=== PATIENT | male | born 1955 | race African-American/Black ===

== ENCOUNTER → 2017-02-17 | Day surgery (SDC) | payer MEDICAID ==
[2017-02-17 08:33] LABS: INR 1.1; PARTIAL THROMBOPLASTIN TIME 27.1 sec (24.0-34.0); PROTHROMBIN TIME 11.9 sec
== END | disposition home or self-care (01) ==
LOC: RADANGIO 07:53
PROVIDERS: ATTEND Internal Medicine Nephrology
DX: I12.0 Hypertensive chronic kidney disease with stage 5 chronic kidney disease or end stage renal disease (principal); N18.6 End stage renal disease; E11.9 Type 2 diabetes mellitus without complications; E78.5 Hyperlipidemia, unspecified; D64.9 Anemia, unspecified
CPT/HCPCS: 36415; 36589; 85610; 85730

== ENCOUNTER 2020-03-25 07:48 | Inpatient (IN) | payer MEDICAID ==
[~2020-03-25] VITALS: Ht 175.3 cm; Wt 93.0 kg
[2020-03-25 09:07] LABS: BASOPHILS % 0.4 % (0.0-2.0); EOSINOPHILS % 2.3 % (0.0-5.0); HEMATOCRIT. 34.5 % (42.0-52.0); HEMOGLOBIN. 11.4 g/dL (14.0-18.0); LYMPHOCYTES % 12.5 % (20.0-50.0); MEAN CORPUSCULAR VOLUME 87.5 fL (80.0-94.0); MEAN PLATELET VOLUME 7.6 fl (7.4-10.4); MONOCYTES % 7.6 % (2.0-8.0); NEUTROPHILS % 77.2 % (40.0-76.0); PLATELET 235 x1000/uL (130-400); RED BLOOD CELL COUNT 3.94 mill/uL (4.7-6.1); RED CELL DISTRIBUTION WIDTH 16.4 % (11.6-14.6)
[2020-03-25 09:14] LABS: CHLORIDE 94 mEq/L (98-107); INR 0.9; PROTHROMBIN TIME 10.3 sec (9.6-11.0)
[2020-03-25] MEDS ORDERED: CLONIDINE 0.2MG TABLET PO SCH (15:15)
[2020-03-25] MEDS ORDERED: AZITHROMYCIN 500 MG TABLET PO SCH (15:30)
[2020-03-25] MEDS: ENOXAPARIN 30MG/0.3ML SYR SUBCUT SCH (15:52)
[2020-03-25 16:19] LABS: CLARITY URINE CLEAR (CLEAR); COLOR URINE YELLOW (YELLOW); KETONES URINE NEGATIVE (NEGATIVE); LEUKOCYTE ESTERASE URINE NEGATIVE (NEGATIVE); NITRITE URINE NEGATIVE (NEGATIVE); OCCULT BLOOD URINE 1+ (NEGATIVE); PH URINE >=9.0 (4.5-8.0); PROTEIN URINE 3+ (NEGATIVE); SPECIFIC GRAVITY URINE 1.011 (1.005-1.030); UROBILINOGEN URINE 0.2 E.U./dL (0.2-1.0)
[2020-03-25] MEDS ORDERED: LORAZEPAM 2MG/ML CPJ IV PRN (21:00)
[2020-03-25] MEDS ORDERED: DOCUSATE SODIUM 100MG CAPSULE PO PRN (21:00)
[2020-03-25] MEDS ORDERED: ACETAMINOPHEN 325MG TABLET PO PRN (21:00)
[2020-03-25] MEDS ORDERED: MAGNESIUM/ALUMINUM HYDROXIDE/SIMETHICONE 30ML UDC PO PRN (21:00)
[2020-03-25] MEDS ORDERED: MORPHINE SULFATE 2 MG/ML CPJ (NOT FOR IM USE) IV PRN (21:00)
[2020-03-25] MEDS ORDERED: DEXTROSE 50% WATER 50ML SYRINGE IV PRN (21:00)
[2020-03-25] MEDS ORDERED: ONDANSETRON HCL 4MG/2ML INJ IV PRN (21:00)
[2020-03-25] MEDS ORDERED: DIPHENHYDRAMINE 50MG/ML VIAL IV PRN (21:00)
[2020-03-25] MEDS ORDERED: IPRATROPIUM/ALBUTEROL 0.5-3(2.5)MG/3ML NEB NEB PRN (21:00)
[2020-03-25] MEDS ORDERED: HYDROCODONE/ACETAMINOPHEN 10/325MG TABLET PO PRN (21:00)
[2020-03-25] MEDS ORDERED: GUAIFENESIN 200MG/10ML SUGAR FREE UDC PO PRN (21:00)
[2020-03-25] MEDS: CLONIDINE 0.1MG TABLET PO PRN (22:08)
[2020-03-25] MEDS ORDERED: HYDRALAZINE 20MG/ML VIAL IV PRN (22:15)
[2020-03-26] MEDS: CLONIDINE 0.1MG TABLET PO PRN (03:48)
[2020-03-26 04:00] VITALS: BP 192/86
[2020-03-26] MEDS ORDERED: HYDRALAZINE 20MG/ML VIAL IV PRN (04:00)
[2020-03-26] MEDS: SODIUM CHLORIDE 0.9% INJ 3ML FLUSH IVF SCH ×3 (07:06→21:31)
[2020-03-26] MEDS: BLOOD SUGAR DIAGNOSTIC STRIP TEST SCH ×4 (07:12→21:30)
[2020-03-26] MEDS: INSULIN LISPRO 100 UNITS/ML SUBCUT SCH ×4 (08:10→21:00)
[2020-03-26] MEDS: ENOXAPARIN 30MG/0.3ML SYR SUBCUT SCH (09:21)
[2020-03-26] MEDS: AZITHROMYCIN 250 MG TABLET PO SCH (09:22)
[2020-03-26 10:56] LABS: BASOPHILS % 0.7 % (0.0-2.0); EOSINOPHILS % 2.3 % (0.0-5.0); HEMATOCRIT. 31.9 % (42.0-52.0); HEMOGLOBIN. 10.3 g/dL (14.0-18.0); LYMPHOCYTES % 8.3 % (20.0-50.0); MEAN CORPUSCULAR HEMOGLOBIN 28.9 pg (28.0-32.0); MEAN CORPUSCULAR VOLUME 89.7 fL (80.0-94.0); MEAN PLATELET VOLUME 8.3 fl (7.4-10.4); MONOCYTES % 10.7 % (2.0-8.0); PLATELET 217 x1000/uL (130-400); RED BLOOD CELL COUNT 3.56 mill/uL (4.7-6.1); RED CELL DISTRIBUTION WIDTH 16.3 % (11.6-14.6)
[2020-03-26 10:59] LABS: CHLORIDE 97 mEq/L (98-107)
[2020-03-26 12:00] VITALS: BP 174/78
[2020-03-26] MEDS: NIFEDIPINE XL 60MG TAB PO SCH (13:30)
[2020-03-26] MEDS: HYDRALAZINE HCL 50MG TABLET PO SCH ×2 (14:00→21:30)
[2020-03-26] MEDS ORDERED: SODIUM POLYSTYRENE SULFONATE 15 G/60 ML BOT PO SCH (14:00)
[2020-03-26 16:00] VITALS: BP 164/68
[2020-03-26] MEDS: CLONIDINE 0.2MG TABLET PO SCH (18:15)
[2020-03-26 20:09] VITALS: BP 148/77
[2020-03-27] VITALS: BP 126/80
[2020-03-27 04:00] VITALS: BP 168/88
[2020-03-27] MEDS: SODIUM CHLORIDE 0.9% INJ 3ML FLUSH IVF SCH ×3 (06:28→21:20)
[2020-03-27] MEDS: INSULIN LISPRO 100 UNITS/ML SUBCUT SCH ×4 (06:28→21:19)
[2020-03-27] MEDS: BLOOD SUGAR DIAGNOSTIC STRIP TEST SCH ×4 (06:28→21:00)
[2020-03-27] MEDS: HYDRALAZINE HCL 50MG TABLET PO SCH ×3 (06:28→21:04)
[2020-03-27 08:00] VITALS: BP 188/85
[2020-03-27] MEDS: ENOXAPARIN 40MG/0.4ML SYR SUBCUT SCH (09:09)
[2020-03-27] MEDS: AZITHROMYCIN 250 MG TABLET PO SCH (09:12)
[2020-03-27] MEDS: CLONIDINE 0.2MG TABLET PO SCH ×2 (09:12→17:53)
[2020-03-27] MEDS: NIFEDIPINE XL 60MG TAB PO SCH (09:13)
[2020-03-27 12:00] VITALS: BP 184/104
[2020-03-27 16:00] VITALS: BP 114/83
[2020-03-27 18:06] LABS: COVID-19 PCR RNA DETECTED
[2020-03-27 20:00] VITALS: BP 173/68
[2020-03-28] VITALS: BP 113/66
[2020-03-28 04:00] VITALS: BP 131/62
[2020-03-28] MEDS: HYDRALAZINE HCL 50MG TABLET PO SCH ×3 (05:08→22:00)
[2020-03-28] MEDS: SODIUM CHLORIDE 0.9% INJ 3ML FLUSH IVF SCH ×3 (06:00→22:00)
[2020-03-28] MEDS: BLOOD SUGAR DIAGNOSTIC STRIP TEST SCH ×4 (07:02→21:00)
[2020-03-28] MEDS: INSULIN LISPRO 100 UNITS/ML SUBCUT SCH ×4 (07:33→21:00)
[2020-03-28 08:00] VITALS: BP 168/73
[2020-03-28] MEDS: AZITHROMYCIN 250 MG TABLET PO SCH (09:14)
[2020-03-28] MEDS: CLONIDINE 0.2MG TABLET PO SCH ×2 (09:14→17:11)
[2020-03-28] MEDS: NIFEDIPINE XL 60MG TAB PO SCH (09:14)
[2020-03-28] MEDS: ENOXAPARIN 40MG/0.4ML SYR SUBCUT SCH (09:15)
[2020-03-28 12:00] VITALS: BP 159/83
[2020-03-28 16:00] VITALS: BP 160/82
[2020-03-28 17:25] LABS: BASOPHILS % 0.5 % (0.0-2.0); EOSINOPHILS % 0.2 % (0.0-5.0); HEMATOCRIT. 35.5 % (42.0-52.0); HEMOGLOBIN. 11.4 g/dL (14.0-18.0); LYMPHOCYTES % 7.4 % (20.0-50.0); MEAN CORPUSCULAR HEMOGLOBIN 29.2 pg (28.0-32.0); MEAN CORPUSCULAR VOLUME 90.5 fL (80.0-94.0); MEAN PLATELET VOLUME 8.3 fl (7.4-10.4); MONOCYTES % 10.7 % (2.0-8.0); NEUTROPHILS % 81.2 % (40.0-76.0); PLATELET 213 x1000/uL (130-400); RED BLOOD CELL COUNT 3.92 mill/uL (4.7-6.1); RED CELL DISTRIBUTION WIDTH 17.1 % (11.6-14.6)
[2020-03-28 20:00] VITALS: BP 142/69
[2020-03-29 00:38] VITALS: BP 142/69
[2020-03-29 04:00] VITALS: BP 136/68
[2020-03-29] MEDS: HYDRALAZINE HCL 50MG TABLET PO SCH ×3 (06:00→21:00)
[2020-03-29] MEDS: SODIUM CHLORIDE 0.9% INJ 3ML FLUSH IVF SCH ×3 (06:00→21:00)
[2020-03-29] MEDS: BLOOD SUGAR DIAGNOSTIC STRIP TEST SCH ×4 (07:40→20:59)
[2020-03-29 08:00] VITALS: BP 148/78
[2020-03-29] MEDS: AZITHROMYCIN 250 MG TABLET PO SCH (09:00)
[2020-03-29] MEDS: CLONIDINE 0.2MG TABLET PO SCH ×2 (09:03→17:47)
[2020-03-29] MEDS: ENOXAPARIN 40MG/0.4ML SYR SUBCUT SCH (09:03)
[2020-03-29] MEDS: NIFEDIPINE XL 60MG TAB PO SCH (09:03)
[2020-03-29] MEDS: INSULIN LISPRO 100 UNITS/ML SUBCUT SCH ×4 (09:04→20:58)
[2020-03-29 12:00] VITALS: BP 147/72
[2020-03-29 16:00] VITALS: BP 155/60
[2020-03-29 20:00] VITALS: BP 148/74
[2020-03-30] VITALS: BP 136/72
[2020-03-30 04:00] VITALS: BP 166/73
[2020-03-30] MEDS: SODIUM CHLORIDE 0.9% INJ 3ML FLUSH IVF SCH ×3 (06:27→21:50)
[2020-03-30] MEDS: HYDRALAZINE HCL 50MG TABLET PO SCH ×3 (06:28→21:49)
[2020-03-30] MEDS: BLOOD SUGAR DIAGNOSTIC STRIP TEST SCH ×4 (06:28→21:50)
[2020-03-30 07:01] LABS: BASOPHILS % 0.4 % (0.0-2.0); EOSINOPHILS % 0.2 % (0.0-5.0); HEMATOCRIT. 34.5 % (42.0-52.0); HEMOGLOBIN. 11.5 g/dL (14.0-18.0); LYMPHOCYTES % 7.9 % (20.0-50.0); MEAN CORPUSCULAR HEMOGLOBIN 29.2 pg (28.0-32.0); MEAN CORPUSCULAR VOLUME 87.4 fL (80.0-94.0); MEAN PLATELET VOLUME 8.3 fl (7.4-10.4); MONOCYTES % 10.4 % (2.0-8.0); NEUTROPHILS % 81.1 % (40.0-76.0); PLATELET 226 x1000/uL (130-400); RED BLOOD CELL COUNT 3.95 mill/uL (4.7-6.1); RED CELL DISTRIBUTION WIDTH 16.4 % (11.6-14.6)
[2020-03-30 08:00] VITALS: BP 132/72
[2020-03-30] MEDS: INSULIN LISPRO 100 UNITS/ML SUBCUT SCH ×4 (08:10→21:50)
[2020-03-30] MEDS: AZITHROMYCIN 250 MG TABLET PO SCH (08:37)
[2020-03-30] MEDS: CLONIDINE 0.2MG TABLET PO SCH ×2 (08:45→17:00)
[2020-03-30] MEDS: NIFEDIPINE XL 60MG TAB PO SCH (08:46)
[2020-03-30] MEDS: ENOXAPARIN 40MG/0.4ML SYR SUBCUT SCH (08:47)
[2020-03-30 12:00] VITALS: BP 140/73
[2020-03-30 16:00] VITALS: BP 159/79
[2020-03-30 20:00] VITALS: BP 174/80
[2020-03-30] MEDS ORDERED: SODIUM POLYSTYRENE SULFONATE 15 G/60 ML BOT PO NR (20:00)
[2020-03-31] VITALS (8 sets, daily range): BP systolic 122–180; BP diastolic 58–83
[2020-03-31] MEDS: HYDRALAZINE HCL 50MG TABLET PO SCH ×3 (06:00→21:03)
[2020-03-31] MEDS: SODIUM CHLORIDE 0.9% INJ 3ML FLUSH IVF SCH ×3 (06:20→21:04)
[2020-03-31] MEDS: BLOOD SUGAR DIAGNOSTIC STRIP TEST SCH ×4 (07:46→21:04)
[2020-03-31] MEDS: INSULIN LISPRO 100 UNITS/ML SUBCUT SCH ×4 (07:48→21:04)
[2020-03-31] MEDS: ENOXAPARIN 40MG/0.4ML SYR SUBCUT SCH (08:50)
[2020-03-31] MEDS: NIFEDIPINE XL 60MG TAB PO SCH (08:58)
[2020-03-31] MEDS: CLONIDINE 0.2MG TABLET PO SCH ×2 (08:58→16:45)
[2020-03-31] MEDS: LOSARTAN POTASSIUM 50 MG TABLET PO SCH (13:43)
[2020-03-31] MEDS: CARVEDILOL 3.125 MG TABLET PO SCH (21:03)
[2020-04-01 00:20] VITALS: BP 113/62
[2020-04-01 04:00] VITALS: BP 120/60
[2020-04-01] MEDS: HYDRALAZINE HCL 50MG TABLET PO SCH ×3 (05:54→21:13)
[2020-04-01] MEDS: SODIUM CHLORIDE 0.9% INJ 3ML FLUSH IVF SCH ×3 (05:54→22:01)
[2020-04-01] MEDS: BLOOD SUGAR DIAGNOSTIC STRIP TEST SCH ×4 (05:55→21:37)
[2020-04-01 08:00] VITALS: BP 123/69
[2020-04-01] MEDS: INSULIN LISPRO 100 UNITS/ML SUBCUT SCH ×4 (08:10→22:13)
[2020-04-01] MEDS: CARVEDILOL 3.125 MG TABLET PO SCH ×2 (09:35→21:13)
[2020-04-01] MEDS: CLONIDINE 0.2MG TABLET PO SCH ×2 (09:35→16:58)
[2020-04-01] MEDS: NIFEDIPINE XL 60MG TAB PO SCH (09:35)
[2020-04-01] MEDS: LOSARTAN POTASSIUM 50 MG TABLET PO SCH (09:35)
[2020-04-01] MEDS: ENOXAPARIN 40MG/0.4ML SYR SUBCUT SCH (09:35)
[2020-04-01 12:00] VITALS: BP 127/62
[2020-04-01 16:00] VITALS: BP 124/67
[2020-04-01 20:00] VITALS: BP 129/78
[2020-04-02] VITALS: BP 138/64
[2020-04-02 04:00] VITALS: BP 136/79
[2020-04-02] MEDS: HYDRALAZINE HCL 50MG TABLET PO SCH ×3 (06:08→21:46)
[2020-04-02] MEDS: SODIUM CHLORIDE 0.9% INJ 3ML FLUSH IVF SCH ×3 (06:08→22:00)
[2020-04-02] MEDS: BLOOD SUGAR DIAGNOSTIC STRIP TEST SCH ×4 (06:58→21:57)
[2020-04-02] MEDS: INSULIN LISPRO 100 UNITS/ML SUBCUT SCH ×4 (07:30→21:00)
[2020-04-02 08:00] VITALS: BP 126/63
[2020-04-02] MEDS: CLONIDINE 0.2MG TABLET PO SCH ×2 (08:54→17:00)
[2020-04-02] MEDS: CARVEDILOL 3.125 MG TABLET PO SCH ×2 (08:54→21:46)
[2020-04-02] MEDS: NIFEDIPINE XL 60MG TAB PO SCH (08:55)
[2020-04-02] MEDS: ENOXAPARIN 40MG/0.4ML SYR SUBCUT SCH (08:55)
[2020-04-02] MEDS: LOSARTAN POTASSIUM 50 MG TABLET PO SCH (08:55)
[2020-04-02 10:33] LABS: HEMATOCRIT. 33.9 % (42.0-52.0); HEMOGLOBIN. 11.3 g/dL (14.0-18.0); MEAN CORPUSCULAR HEMOGLOBIN 29.2 pg (28.0-32.0); MEAN CORPUSCULAR VOLUME 87.8 fL (80.0-94.0); MEAN PLATELET VOLUME 8.8 fl (7.4-10.4); PLATELET 220 x1000/uL (130-400); RED BLOOD CELL COUNT 3.86 mill/uL (4.7-6.1); RED CELL DISTRIBUTION WIDTH 16.2 % (11.6-14.6)
[2020-04-02 12:00] VITALS: BP 147/74
[2020-04-02 13:05] LABS: PLATELET ESTIMATE NORMAL
[2020-04-02 16:00] VITALS: BP 146/68
[2020-04-02 20:00] VITALS: BP 166/83
[2020-04-03] VITALS: BP 138/78
[2020-04-03 04:00] VITALS: BP 132/67
[2020-04-03] MEDS: HYDRALAZINE HCL 50MG TABLET PO SCH ×3 (05:25→22:00)
[2020-04-03] MEDS: SODIUM CHLORIDE 0.9% INJ 3ML FLUSH IVF SCH ×3 (06:00→22:00)
[2020-04-03] MEDS: BLOOD SUGAR DIAGNOSTIC STRIP TEST SCH ×4 (07:06→21:59)
[2020-04-03] MEDS: INSULIN LISPRO 100 UNITS/ML SUBCUT SCH ×4 (07:06→21:00)
[2020-04-03 08:00] VITALS: BP 147/88
[2020-04-03] MEDS: NIFEDIPINE XL 60MG TAB PO SCH (09:46)
[2020-04-03] MEDS: ENOXAPARIN 40MG/0.4ML SYR SUBCUT SCH (09:46)
[2020-04-03] MEDS: CARVEDILOL 3.125 MG TABLET PO SCH ×2 (09:47→21:00)
[2020-04-03] MEDS: CLONIDINE 0.2MG TABLET PO SCH ×2 (09:47→18:50)
[2020-04-03] MEDS: LOSARTAN POTASSIUM 50 MG TABLET PO SCH (09:47)
[2020-04-03 12:00] VITALS: BP 151/75
[2020-04-03 16:00] VITALS: BP 149/88
[2020-04-03 20:00] VITALS: BP 106/60
[2020-04-04] VITALS: BP 124/72
[2020-04-04 04:00] VITALS: BP 112/59
[2020-04-04 04:58] LABS: BASOPHILS % 0.3 % (0.0-2.0); EOSINOPHILS % 1.5 % (0.0-5.0); HEMATOCRIT. 31.6 % (42.0-52.0); HEMOGLOBIN. 10.6 g/dL (14.0-18.0); MEAN CORPUSCULAR HEMOGLOBIN 29.5 pg (28.0-32.0); MEAN CORPUSCULAR VOLUME 88.4 fL (80.0-94.0); MEAN PLATELET VOLUME 8.7 fl (7.4-10.4); MONOCYTES % 9.3 % (2.0-8.0); NEUTROPHILS % 76.9 % (40.0-76.0); PLATELET 217 x1000/uL (130-400); RED BLOOD CELL COUNT 3.58 mill/uL (4.7-6.1); RED CELL DISTRIBUTION WIDTH 15.8 % (11.6-14.6)
[2020-04-04] MEDS: SODIUM CHLORIDE 0.9% INJ 3ML FLUSH IVF SCH ×3 (06:14→19:58)
[2020-04-04] MEDS: HYDRALAZINE HCL 50MG TABLET PO SCH ×3 (06:14→19:58)
[2020-04-04] MEDS: BLOOD SUGAR DIAGNOSTIC STRIP TEST SCH ×4 (06:18→19:58)
[2020-04-04 08:00] VITALS: BP 152/117
[2020-04-04] MEDS: LOSARTAN POTASSIUM 50 MG TABLET PO SCH (08:02)
[2020-04-04] MEDS: NIFEDIPINE XL 60MG TAB PO SCH (08:03)
[2020-04-04] MEDS: CARVEDILOL 3.125 MG TABLET PO SCH ×2 (08:03→19:58)
[2020-04-04] MEDS: ENOXAPARIN 40MG/0.4ML SYR SUBCUT SCH (08:07)
[2020-04-04] MEDS: CLONIDINE 0.2MG TABLET PO SCH ×2 (08:07→17:06)
[2020-04-04] MEDS: INSULIN LISPRO 100 UNITS/ML SUBCUT SCH ×4 (08:10→20:06)
[2020-04-04 12:00] VITALS: BP 152/117
[2020-04-04 16:00] VITALS: BP 152/117
[2020-04-04 20:00] VITALS: BP 112/65
[2020-04-05 00:05] VITALS: BP 102/56
[2020-04-05 04:00] VITALS: BP 122/58
[2020-04-05 05:22] LABS: BASOPHILS % 0.5 % (0.0-2.0); EOSINOPHILS % 1.6 % (0.0-5.0); HEMATOCRIT. 30.5 % (42.0-52.0); HEMOGLOBIN. 10.3 g/dL (14.0-18.0); LYMPHOCYTES % 14.2 % (20.0-50.0); MEAN CORPUSCULAR HEMOGLOBIN 29.8 pg (28.0-32.0); MEAN CORPUSCULAR VOLUME 88.3 fL (80.0-94.0); MEAN PLATELET VOLUME 8.9 fl (7.4-10.4); MONOCYTES % 9.4 % (2.0-8.0); NEUTROPHILS % 74.3 % (40.0-76.0); PLATELET 242 x1000/uL (130-400); RED BLOOD CELL COUNT 3.46 mill/uL (4.7-6.1); RED CELL DISTRIBUTION WIDTH 15.7 % (11.6-14.6)
[2020-04-05] MEDS: HYDRALAZINE HCL 50MG TABLET PO SCH ×3 (05:56→21:48)
[2020-04-05] MEDS: BLOOD SUGAR DIAGNOSTIC STRIP TEST SCH ×4 (05:56→22:06)
[2020-04-05] MEDS: SODIUM CHLORIDE 0.9% INJ 3ML FLUSH IVF SCH ×3 (05:56→22:06)
[2020-04-05] MEDS: INSULIN LISPRO 100 UNITS/ML SUBCUT SCH ×4 (07:43→22:05)
[2020-04-05 08:00] VITALS: BP_SYST 130; BP_SYST 144; BP_DIAS 65; BP_DIAS 89
[2020-04-05] MEDS: NIFEDIPINE XL 60MG TAB PO SCH (09:00)
[2020-04-05] MEDS: LOSARTAN POTASSIUM 50 MG TABLET PO SCH (09:00)
[2020-04-05] MEDS: CLONIDINE 0.2MG TABLET PO SCH ×2 (09:00→17:00)
[2020-04-05] MEDS: CARVEDILOL 3.125 MG TABLET PO SCH ×2 (09:00→21:49)
[2020-04-05] MEDS: ENOXAPARIN 40MG/0.4ML SYR SUBCUT SCH (09:51)
[2020-04-05 16:00] VITALS: BP 133/66
[2020-04-05 20:00] VITALS: BP 140/80
[2020-04-06] VITALS: BP 134/71
[2020-04-06] MEDS: SODIUM CHLORIDE 0.9% INJ 3ML FLUSH IVF SCH ×3 (05:43→21:06)
[2020-04-06] MEDS: HYDRALAZINE HCL 50MG TABLET PO SCH ×3 (05:43→21:07)
[2020-04-06] MEDS: BLOOD SUGAR DIAGNOSTIC STRIP TEST SCH ×4 (07:40→21:07)
[2020-04-06] MEDS: INSULIN LISPRO 100 UNITS/ML SUBCUT SCH ×4 (07:48→21:19)
[2020-04-06 08:00] VITALS: BP 106/66
[2020-04-06] MEDS: ENOXAPARIN 40MG/0.4ML SYR SUBCUT SCH (08:53)
[2020-04-06] MEDS: NIFEDIPINE XL 60MG TAB PO SCH (08:53)
[2020-04-06] MEDS: LOSARTAN POTASSIUM 50 MG TABLET PO SCH (08:54)
[2020-04-06] MEDS: CLONIDINE 0.2MG TABLET PO SCH ×2 (08:54→17:00)
[2020-04-06] MEDS: CARVEDILOL 3.125 MG TABLET PO SCH ×2 (08:54→21:07)
[2020-04-06 12:00] VITALS: BP_SYST 106; BP_SYST 157; BP_DIAS 66; BP_DIAS 86
[2020-04-06 13:00] VITALS: BP 157/86
[2020-04-06 16:00] VITALS: BP 141/88
[2020-04-06 20:00] VITALS: BP 142/72
[2020-04-07] VITALS: BP 135/75
[2020-04-07 04:00] VITALS: BP 137/67
[2020-04-07] MEDS: HYDRALAZINE HCL 50MG TABLET PO SCH ×3 (06:13→22:22)
[2020-04-07] MEDS: SODIUM CHLORIDE 0.9% INJ 3ML FLUSH IVF SCH ×3 (06:13→22:23)
[2020-04-07] MEDS: INSULIN LISPRO 100 UNITS/ML SUBCUT SCH ×4 (07:35→22:24)
[2020-04-07] MEDS: BLOOD SUGAR DIAGNOSTIC STRIP TEST SCH ×4 (07:35→21:00)
[2020-04-07 08:00] VITALS: BP 149/56
[2020-04-07] MEDS: CLONIDINE 0.2MG TABLET PO SCH ×2 (09:04→16:57)
[2020-04-07] MEDS: ENOXAPARIN 40MG/0.4ML SYR SUBCUT SCH (09:04)
[2020-04-07] MEDS: NIFEDIPINE XL 60MG TAB PO SCH (09:04)
[2020-04-07] MEDS: CARVEDILOL 3.125 MG TABLET PO SCH ×2 (09:04→22:22)
[2020-04-07] MEDS: LOSARTAN POTASSIUM 50 MG TABLET PO SCH (09:05)
[2020-04-07 12:00] VITALS: BP 118/74
[2020-04-07 16:00] VITALS: BP 105/44
[2020-04-07 20:00] VITALS: BP 122/67
[2020-04-08] VITALS: BP 109/64
[2020-04-08 04:00] VITALS: BP 136/66
[2020-04-08] MEDS: SODIUM CHLORIDE 0.9% INJ 3ML FLUSH IVF SCH ×3 (06:17→22:41)
[2020-04-08] MEDS: BLOOD SUGAR DIAGNOSTIC STRIP TEST SCH ×4 (06:17→21:54)
[2020-04-08] MEDS: HYDRALAZINE HCL 50MG TABLET PO SCH ×4 (06:17→21:55)
[2020-04-08 08:00] VITALS: BP 96/63
[2020-04-08] MEDS: INSULIN LISPRO 100 UNITS/ML SUBCUT SCH ×4 (08:10→21:00)
[2020-04-08] MEDS: CARVEDILOL 3.125 MG TABLET PO SCH ×2 (09:00→21:55)
[2020-04-08] MEDS: LOSARTAN POTASSIUM 50 MG TABLET PO SCH (09:00)
[2020-04-08] MEDS: CLONIDINE 0.2MG TABLET PO SCH ×2 (09:00→17:00)
[2020-04-08] MEDS: NIFEDIPINE XL 60MG TAB PO SCH (09:00)
[2020-04-08] MEDS: ENOXAPARIN 40MG/0.4ML SYR SUBCUT SCH (09:56)
[2020-04-08 12:00] VITALS: BP 163/84
[2020-04-08 12:17] LABS: BASOPHILS % 0.9 % (0.0-2.0); HEMATOCRIT. 31.4 % (42.0-52.0); HEMOGLOBIN. 10.3 g/dL (14.0-18.0); LYMPHOCYTES % 7.9 % (20.0-50.0); MEAN CORPUSCULAR HEMOGLOBIN 29.1 pg (28.0-32.0); MEAN CORPUSCULAR VOLUME 88.7 fL (80.0-94.0); MEAN PLATELET VOLUME 8.5 fl (7.4-10.4); MONOCYTES % 8.3 % (2.0-8.0); NEUTROPHILS % 80.9 % (40.0-76.0); PLATELET 252 x1000/uL (130-400); RED BLOOD CELL COUNT 3.54 mill/uL (4.7-6.1); RED CELL DISTRIBUTION WIDTH 15.5 % (11.6-14.6)
[2020-04-08 16:00] VITALS: BP 108/69
[2020-04-08 18:24] LABS: BASOPHILS % 0.7 % (0.0-2.0); EOSINOPHILS % 2.3 % (0.0-5.0); HEMATOCRIT. 28.5 % (42.0-52.0); HEMOGLOBIN. 9.5 g/dL (14.0-18.0); LYMPHOCYTES % 11.5 % (20.0-50.0); MEAN CORPUSCULAR HEMOGLOBIN 29.4 pg (28.0-32.0); MEAN CORPUSCULAR VOLUME 88.2 fL (80.0-94.0); MEAN PLATELET VOLUME 8.5 fl (7.4-10.4); MONOCYTES % 9.9 % (2.0-8.0); NEUTROPHILS % 75.6 % (40.0-76.0); PLATELET 247 x1000/uL (130-400); RED BLOOD CELL COUNT 3.23 mill/uL (4.7-6.1); RED CELL DISTRIBUTION WIDTH 15.4 % (11.6-14.6)
[2020-04-08 20:00] VITALS: BP 108/52
[2020-04-09] VITALS: BP 105/53
[2020-04-09 04:00] VITALS: BP 120/70
[2020-04-09] MEDS: HYDRALAZINE HCL 50MG TABLET PO SCH (05:35)
[2020-04-09] MEDS: SODIUM CHLORIDE 0.9% INJ 3ML FLUSH IVF SCH ×3 (05:35→21:46)
[2020-04-09] MEDS: INSULIN LISPRO 100 UNITS/ML SUBCUT SCH ×4 (07:54→23:09)
[2020-04-09] MEDS: BLOOD SUGAR DIAGNOSTIC STRIP TEST SCH ×4 (07:54→21:00)
[2020-04-09 08:00] VITALS: BP 89/63
[2020-04-09] MEDS: CLONIDINE 0.2MG TABLET PO SCH (09:00)
[2020-04-09] MEDS: LOSARTAN POTASSIUM 50 MG TABLET PO SCH (09:00)
[2020-04-09] MEDS: CARVEDILOL 3.125 MG TABLET PO SCH (09:00)
[2020-04-09] MEDS: NIFEDIPINE XL 60MG TAB PO SCH (09:00)
[2020-04-09] MEDS: ENOXAPARIN 40MG/0.4ML SYR SUBCUT SCH (09:54)
[2020-04-09 12:00] VITALS: BP 100/57
[2020-04-09] MEDS ORDERED: SODIUM CHLORIDE 0.9% 250 ML IV ONE (13:30)
[2020-04-09 16:00] VITALS: BP 95/52
[2020-04-09 17:02] LABS: BASOPHILS % 0.7 % (0.0-2.0); EOSINOPHILS % 1.8 % (0.0-5.0); HEMATOCRIT. 33.3 % (42.0-52.0); LYMPHOCYTES % 12.3 % (20.0-50.0); MEAN CORPUSCULAR HEMOGLOBIN 29.5 pg (28.0-32.0); MEAN CORPUSCULAR VOLUME 89.2 fL (80.0-94.0); MEAN PLATELET VOLUME 8.6 fl (7.4-10.4); MONOCYTES % 10.5 % (2.0-8.0); NEUTROPHILS % 74.7 % (40.0-76.0); PLATELET 279 x1000/uL (130-400); RED BLOOD CELL COUNT 3.73 mill/uL (4.7-6.1); RED CELL DISTRIBUTION WIDTH 15.8 % (11.6-14.6)
[2020-04-09 20:00] VITALS: BP 118/88
[2020-04-10] VITALS: BP 141/84
[2020-04-10 04:00] VITALS: BP 97/48
[2020-04-10] MEDS: SODIUM CHLORIDE 0.9% INJ 3ML FLUSH IVF SCH ×3 (05:37→21:54)
[2020-04-10] MEDS: INSULIN LISPRO 100 UNITS/ML SUBCUT SCH ×4 (07:17→21:55)
[2020-04-10] MEDS: BLOOD SUGAR DIAGNOSTIC STRIP TEST SCH ×4 (07:17→21:54)
[2020-04-10 08:00] VITALS: BP 127/65
[2020-04-10] MEDS: ENOXAPARIN 40MG/0.4ML SYR SUBCUT SCH (08:38)
[2020-04-10 10:20] LABS: EOSINOPHILS % 2.3 % (0.0-5.0); HEMATOCRIT. 31.3 % (42.0-52.0); HEMOGLOBIN. 10.4 g/dL (14.0-18.0); MEAN CORPUSCULAR HEMOGLOBIN 29.3 pg (28.0-32.0); MEAN CORPUSCULAR VOLUME 88.5 fL (80.0-94.0); MEAN PLATELET VOLUME 8.8 fl (7.4-10.4); MONOCYTES % 9.6 % (2.0-8.0); NEUTROPHILS % 73.1 % (40.0-76.0); PLATELET 269 x1000/uL (130-400); RED BLOOD CELL COUNT 3.53 mill/uL (4.7-6.1); RED CELL DISTRIBUTION WIDTH 15.7 % (11.6-14.6)
[2020-04-10 12:00] VITALS: BP 126/67
[2020-04-10 16:00] VITALS: BP 120/49
[2020-04-10 20:00] VITALS: BP 100/55
[2020-04-11] VITALS: BP 153/53
[2020-04-11 04:00] VITALS: BP 106/76
[2020-04-11] MEDS: BLOOD SUGAR DIAGNOSTIC STRIP TEST SCH ×4 (05:40→21:41)
[2020-04-11] MEDS: SODIUM CHLORIDE 0.9% INJ 3ML FLUSH IVF SCH ×3 (05:47→20:52)
[2020-04-11 07:44] VITALS: BP 125/72
[2020-04-11] MEDS: ENOXAPARIN 40MG/0.4ML SYR SUBCUT SCH (08:00)
[2020-04-11] MEDS: INSULIN LISPRO 100 UNITS/ML SUBCUT SCH ×4 (08:02→21:00)
[2020-04-11 12:00] VITALS: BP 105/59
[2020-04-11 16:00] VITALS: BP 138/78
[2020-04-11 20:00] VITALS: BP 142/76
[2020-04-12] VITALS (7 sets, daily range): BP systolic 114–153; BP diastolic 60–76
[2020-04-12 04:29] LABS: BASOPHILS % 1.2 % (0.0-2.0); EOSINOPHILS % 2.9 % (0.0-5.0); HEMATOCRIT. 28.2 % (42.0-52.0); HEMOGLOBIN. 9.4 g/dL (14.0-18.0); LYMPHOCYTES % 20.9 % (20.0-50.0); MEAN CORPUSCULAR HEMOGLOBIN 29.8 pg (28.0-32.0); MEAN CORPUSCULAR VOLUME 89.2 fL (80.0-94.0); MEAN PLATELET VOLUME 8.8 fl (7.4-10.4); MONOCYTES % 11.2 % (2.0-8.0); NEUTROPHILS % 63.8 % (40.0-76.0); PLATELET 219 x1000/uL (130-400); RED BLOOD CELL COUNT 3.16 mill/uL (4.7-6.1); RED CELL DISTRIBUTION WIDTH 15.4 % (11.6-14.6)
[2020-04-12] MEDS: SODIUM CHLORIDE 0.9% INJ 3ML FLUSH IVF SCH ×3 (05:52→22:22)
[2020-04-12] MEDS: BLOOD SUGAR DIAGNOSTIC STRIP TEST SCH ×4 (05:52→21:00)
[2020-04-12] MEDS: INSULIN LISPRO 100 UNITS/ML SUBCUT SCH ×4 (07:40→22:22)
[2020-04-12] MEDS: ENOXAPARIN 40MG/0.4ML SYR SUBCUT SCH (08:06)
== END 2020-04-12 23:22 | DRG 137 ==
LOC: ER 07:48 → EDBEDREQSVC 09:50 → EDBEDREQTM 09:50 → EDBEDREQ 09:50 → 7WST 11:14 → EDBEDREQTM 11:16 → EDBEDREQ 11:16 → ENRESERV 03-26 01:59
PROVIDERS: ADMIT Internal Medicine; ATTEND Internal Medicine
PROC: 5A1D70Z Performance of Urinary Filtration, Intermittent, Less than 6 Hours Per Day (ICD-10-PCS; principal; 2020-03-25)
PROC: 5A1D70Z Performance of Urinary Filtration, Intermittent, Less than 6 Hours Per Day (ICD-10-PCS; 2020-03-26)
PROC: 5A1D70Z Performance of Urinary Filtration, Intermittent, Less than 6 Hours Per Day (ICD-10-PCS; 2020-03-28)
PROC: 5A1D70Z Performance of Urinary Filtration, Intermittent, Less than 6 Hours Per Day (ICD-10-PCS; 2020-04-02)
PROC: 5A1D70Z Performance of Urinary Filtration, Intermittent, Less than 6 Hours Per Day (ICD-10-PCS; 2020-04-03)
PROC: 5A1D70Z Performance of Urinary Filtration, Intermittent, Less than 6 Hours Per Day (ICD-10-PCS; 2020-04-05)
PROC: 5A1D70Z Performance of Urinary Filtration, Intermittent, Less than 6 Hours Per Day (ICD-10-PCS; 2020-04-06)
PROC: 5A1D70Z Performance of Urinary Filtration, Intermittent, Less than 6 Hours Per Day (ICD-10-PCS; 2020-04-08)
PROC: 5A1D70Z Performance of Urinary Filtration, Intermittent, Less than 6 Hours Per Day (ICD-10-PCS; 2020-04-10)
PROC: 5A1D70Z Performance of Urinary Filtration, Intermittent, Less than 6 Hours Per Day (ICD-10-PCS; 2020-04-12)
DX: U07.1 COVID-19 (principal); J96.00 Acute respiratory failure, unspecified whether with hypoxia or hypercapnia; I13.2 Hypertensive heart and chronic kidney disease with heart failure and with stage 5 chronic kidney disease, or end stage renal disease; E11.22 Type 2 diabetes mellitus with diabetic chronic kidney disease; I27.20 Pulmonary hypertension, unspecified; N18.6 End stage renal disease; E87.1 Hypo-osmolality and hyponatremia; E87.5 Hyperkalemia; E78.5 Hyperlipidemia, unspecified; I42.9 Cardiomyopathy, unspecified; I50.23 Acute on chronic systolic (congestive) heart failure; D63.8 Anemia in other chronic diseases classified elsewhere; E78.00 Pure hypercholesterolemia, unspecified; F99 Mental disorder, not otherwise specified; J20.8 Acute bronchitis due to other specified organisms; B97.89 Other viral agents as the cause of diseases classified elsewhere; Z99.2 Dependence on renal dialysis; Z89.429 Acquired absence of other toe(s), unspecified side
CPT/HCPCS: 36415; 71045; 80048; 80053; 81003; 82962; 83605; 84145; 84484; 85025; 87635; 87804; 93005; 96374; 99285; J0360; J1650; J1815; J2060; U0003

== ENCOUNTER 2020-12-09 10:46 | Emergency (ER) | payer MEDICAID ==
[~2020-12-09] VITALS: Ht 177.8 cm; Wt 100.0 kg
[2020-12-09 12:32] LABS: CHLORIDE 96 mEq/L (98-107)
[2020-12-09 12:35] LABS: PROTHROMBIN TIME 10.8 sec (9.6-11.0)
[2020-12-09 12:36] LABS: BASOPHILS % 1.3 % (0.0-2.0); EOSINOPHILS % 6.4 % (0.0-5.0); HEMATOCRIT. 23.8 % (42.0-52.0); LYMPHOCYTES % 8.8 % (20.0-50.0); MEAN CORPUSCULAR HEMOGLOBIN 29.4 pg (28.0-32.0); MEAN CORPUSCULAR VOLUME 87.3 fL (80.0-94.0); MEAN PLATELET VOLUME 7.8 fl (7.4-10.4); MONOCYTES % 13.5 % (2.0-8.0); PLATELET 227 x1000/uL (130-400); RED BLOOD CELL COUNT 2.72 mill/uL (4.7-6.1); RED CELL DISTRIBUTION WIDTH 17.5 % (11.6-14.6)
[2020-12-09 14:00] VITALS: BP 125/61
== END 2020-12-09 15:41 | disposition home or self-care (01) ==
LOC: ER 11:13 → CANBEDREQ 12-10 15:05
DX: D53.9 Nutritional anemia, unspecified (principal); I12.9 Hypertensive chronic kidney disease with stage 1 through stage 4 chronic kidney disease, or unspecified chronic kidney disease; E11.22 Type 2 diabetes mellitus with diabetic chronic kidney disease; N18.9 Chronic kidney disease, unspecified; F03.90 Unspecified dementia, unspecified severity, without behavioral disturbance, psychotic disturbance, mood disturbance, and anxiety; E78.00 Pure hypercholesterolemia, unspecified
CPT/HCPCS: 36415; 71045; 80053; 84484; 85025; 86850; 86900; 93005; 99285

== ENCOUNTER 2021-07-26 10:55 | Inpatient (IN) | payer MEDICAID ==
[~2021-07-26] VITALS: Ht 180.3 cm; Wt 98.2 kg
[2021-07-26 11:27] LABS: HEMATOCRIT. 33.1 % (42.0-52.0); HEMOGLOBIN. 11.3 g/dL (14.0-18.0); MEAN CORPUSCULAR HEMOGLOBIN 30.7 pg (28.0-32.0); MEAN PLATELET VOLUME 8.1 fl (7.4-10.4); PLATELET 268 x1000/uL (130-400); RED BLOOD CELL COUNT 3.68 mill/uL (4.7-6.1); RED CELL DISTRIBUTION WIDTH 15.1 % (11.6-14.6)
[2021-07-26 11:34] LABS: CHLORIDE 89 mEq/L (98-107)
[2021-07-26 12:14] LABS: BG BASE EXCESS 6.3 mmol/L (-2.0-2.0); BG CARBOXYHEMOGLOBIN 0.6 % (0.5-1.5); BG DEOXYHEMOGLOBIN 2.1 % (0.0-5.0); BG FRACTION INSPIRED OXYGEN 100; BG HCO3 ACT 30.8 mmol/L (22.0-26.0); BG METHEMOGLOBIN 0.1 % (0.0-1.5); BG OXYGEN SATURATION 97.9 % (92.0-98.5); BG OXYHEMOGLOBIN 97.2 % (94.0-97.0); BG PCO2 43.8 mmHg (35.0-45.0); BG PH 7.465 (7.350-7.450); BG PO2 114.5 mmHg (75.0-100.0); BG SAMPLE SITE RIGHT RADIAL; BG TOTAL HEMOGLOBIN 12.3 g/dL (12.0-18.0); BG TOTAL RESPIRATORY RATE 25 b/min; BG VENT MODE MASK - BIPAP
[2021-07-26 12:43] LABS: PLATELET ESTIMATE NORMAL
[2021-07-26] MEDS ORDERED: PIPERACILLIN/TAZ 3.375G PREMIX 50 ML IV ONE (12:45)
[2021-07-26] MEDS ORDERED: VANCOMYCIN 1 G PREMIX 200 ML IV ONE (12:45)
[2021-07-26 13:23] LABS: D-DIMER 2.65 mg/L FEU (<0.50)
[2021-07-26] MEDS: ONDANSETRON HCL 4MG/2ML INJ IV PRN (17:49)
[2021-07-26 21:00] VITALS: BP 159/79
[2021-07-26 22:00] VITALS: BP 178/81
[2021-07-26] MEDS ORDERED: CLONIDINE 0.1MG TABLET PO PRN (23:30)
[2021-07-26 23:42] VITALS: BP 162/82
[2021-07-27] VITALS (84 sets, daily range): BP systolic 59–245; BP diastolic 32–117
[2021-07-27] MEDS ORDERED: DEXTROSE 50% WATER 50ML SYRINGE IV PRN (00:15)
[2021-07-27 01:26] LABS: BG BASE EXCESS 6.9 mmol/L (-2.0-2.0); BG CARBOXYHEMOGLOBIN 0.2 % (0.5-1.5); BG DEOXYHEMOGLOBIN 8.2 % (0.0-5.0); BG FRACTION INSPIRED OXYGEN 100; BG HCO3 ACT 32.2 mmol/L (22.0-26.0); BG METHEMOGLOBIN 0.1 % (0.0-1.5); BG OXYGEN SATURATION 91.8 % (92.0-98.5); BG OXYHEMOGLOBIN 91.5 % (94.0-97.0); BG PCO2 49.1 mmHg (35.0-45.0); BG PH 7.435 (7.350-7.450); BG PO2 67.2 mmHg (75.0-100.0); BG TOTAL HEMOGLOBIN 12.1 g/dL (12.0-18.0); BG VENT MODE MASK - NRB
[2021-07-27 01:41] LABS: HEPATITIS B SURFACE ANTIGEN NEGATIVE
[2021-07-27 04:00] LABS: BG BASE EXCESS 4.5 mmol/L (-2.0-2.0); BG CARBOXYHEMOGLOBIN 0.5 % (0.5-1.5); BG DEOXYHEMOGLOBIN 1.8 % (0.0-5.0); BG FRACTION INSPIRED OXYGEN 100; BG HCO3 ACT 32.3 mmol/L (22.0-26.0); BG METHEMOGLOBIN 0.3 % (0.0-1.5); BG OXYGEN SATURATION 98.2 % (92.0-98.5); BG OXYHEMOGLOBIN 97.4 % (94.0-97.0); BG PCO2 63.5 mmHg (35.0-45.0); BG PH 7.324 (7.350-7.450); BG SAMPLE SITE RIGHT BRACHIAL; BG TOTAL HEMOGLOBIN 12.6 g/dL (12.0-18.0); BG VENT MODE VENT - CPAP
[2021-07-27] MEDS ORDERED: MIDAZOLAM HCL 100 MG in SODIUM CHLORIDE 0.9% 80 ML IV PRN (04:30)
[2021-07-27] MEDS ORDERED: FENTANYL CITRATE/PF 500 MCG in SODIUM CHLORIDE 0.9% 40 ML IV PRN (04:30)
[2021-07-27 05:51] LABS: HEMATOCRIT. 32.8 % (42.0-52.0); HEMOGLOBIN. 11.2 g/dL (14.0-18.0); MEAN CORPUSCULAR HEMOGLOBIN 31.2 pg (28.0-32.0); MEAN CORPUSCULAR VOLUME 91.7 fL (80.0-94.0); MEAN PLATELET VOLUME 7.8 fl (7.4-10.4); PLATELET 249 x1000/uL (130-400); RED BLOOD CELL COUNT 3.58 mill/uL (4.7-6.1); RED CELL DISTRIBUTION WIDTH 14.9 % (11.6-14.6)
[2021-07-27] MEDS: PIPERACILLIN/TAZOBACTAM 3.375 G in DEXTROSE 5% WATER 50 ML IV SCH ×3 (05:51→20:04)
[2021-07-27 06:50] LABS: PHOSPHORUS 8.3 mg/dL (2.5-4.9)
[2021-07-27] MEDS: PHENYLEPHRINE 100 MG in DEXT 5% WATER 240 ML IV PRN ×2 (07:45→20:03)
[2021-07-27] MEDS: FENTANYL CITRATE 2,500 MCG in SODIUM CHLORIDE 0.9% 200 ML IV PRN (07:49)
[2021-07-27] MEDS: MIDAZOLAM HCL 100 MG in SODIUM CHLORIDE 0.9% 100 ML IV PRN ×2 (07:49→18:00)
[2021-07-27] MEDS: BLOOD SUGAR DIAGNOSTIC STRIP TEST SCH ×4 (07:50→20:26)
[2021-07-27] MEDS: INSULIN LISPRO 100 UNITS/ML SUBCUT SCH ×4 (08:20→20:42)
[2021-07-27] MEDS: IPRATROPIUM/ALBUTEROL 0.5-3(2.5)MG/3ML NEB HHN SCH ×4 (08:54→19:58)
[2021-07-27] MEDS ORDERED: PIPERACILLIN/TAZOBACTAM 3.375 G in DEXTROSE 5% WATER 50 ML IV SCH (09:00)
[2021-07-27] MEDS: NIFEDIPINE XL 90MG TAB PO SCH (09:00)
[2021-07-27] MEDS: CARVEDILOL 12.5MG TABLET PO SCH ×3 (09:00→20:25)
[2021-07-27] MEDS: HYDRALAZINE HCL 50MG TABLET PO SCH ×3 (09:00→17:00)
[2021-07-27] MEDS ORDERED: NOREPINEPHRINE 8 MG in DEXT 5% WATER 242 ML IV PRN (09:15)
[2021-07-27] MEDS ORDERED: LIDOCAINE HCL 1% 20ML VIAL (Pyxis) INJ ONE (11:12)
[2021-07-27 12:05] LABS: BG BASE EXCESS 1.8 mmol/L (-2.0-2.0); BG CARBOXYHEMOGLOBIN 0.1 % (0.5-1.5); BG DEOXYHEMOGLOBIN 1.2 % (0.0-5.0); BG FRACTION INSPIRED OXYGEN 85; BG HCO3 ACT 27.2 mmol/L (22.0-26.0); BG METHEMOGLOBIN 0.3 % (0.0-1.5); BG OXYGEN SATURATION 98.8 % (92.0-98.5); BG OXYHEMOGLOBIN 98.4 % (94.0-97.0); BG PO2 164.2 mmHg (75.0-100.0); BG SAMPLE SITE RIGHT RADIAL; BG TOTAL HEMOGLOBIN 12.2 g/dL (12.0-18.0); BG VENT MODE VENT - AC
[2021-07-27] MEDS ORDERED: VANCOMYCIN 750 MG PREMIX 150 ML IV NR (13:00)
[2021-07-27] MEDS: SEVELAMER CARBONATE 800 MG TABLET PO SCH ×3 (13:20→17:42)
[2021-07-27] MEDS: FINASTERIDE 5MG TABLET PO SCH (14:27)
[2021-07-27] MEDS: FERROUS SULFATE 325MG TABLET PO SCH ×2 (14:27→17:42)
[2021-07-27] MEDS: ASPIRIN 81MG TABLET PO SCH (14:27)
[2021-07-27] MEDS: ENOXAPARIN 30MG/0.3ML SYR SUBCUT SCH (14:27)
[2021-07-27] MEDS: PANTOPRAZOLE 40MG DR TABLET PO SCH (14:28)
[2021-07-27] MEDS: THIAMINE HCL 100MG TABLET PO SCH (14:28)
[2021-07-27] MEDS: SENNOSIDES/DOCUSATE SOD 8.6/50MG TABLET PO SCH ×2 (20:04→20:26)
[2021-07-27 23:36] LABS: PLATELET ESTIMATE NORMAL
[2021-07-28] VITALS (96 sets, daily range): BP systolic 77–181; BP diastolic 25–117
[2021-07-28] MEDS: IPRATROPIUM/ALBUTEROL 0.5-3(2.5)MG/3ML NEB HHN SCH ×5 (00:02→20:16)
[2021-07-28] MEDS: PHENYLEPHRINE 100 MG in DEXT 5% WATER 240 ML IV PRN ×2 (03:56→15:49)
[2021-07-28] MEDS: MIDAZOLAM HCL 100 MG in SODIUM CHLORIDE 0.9% 100 ML IV PRN (05:35)
[2021-07-28 06:13] LABS: BASOPHILS % 0.7 % (0.0-2.0); EOSINOPHILS % 3.2 % (0.0-5.0); HEMATOCRIT. 31.7 % (42.0-52.0); HEMOGLOBIN. 10.2 g/dL (14.0-18.0); LYMPHOCYTES % 7.2 % (20.0-50.0); MEAN CORPUSCULAR HEMOGLOBIN 29.7 pg (28.0-32.0); MEAN CORPUSCULAR VOLUME 92.1 fL (80.0-94.0); MEAN PLATELET VOLUME 8.2 fl (7.4-10.4); MONOCYTES % 7.8 % (2.0-8.0); NEUTROPHILS % 81.1 % (40.0-76.0); PLATELET 279 x1000/uL (130-400); RED BLOOD CELL COUNT 3.45 mill/uL (4.7-6.1); RED CELL DISTRIBUTION WIDTH 14.7 % (11.6-14.6)
[2021-07-28] MEDS: BLOOD SUGAR DIAGNOSTIC STRIP TEST SCH ×4 (07:50→21:00)
[2021-07-28] MEDS: INSULIN LISPRO 100 UNITS/ML SUBCUT SCH ×4 (08:20→20:53)
[2021-07-28 08:32] LABS: BG BASE EXCESS 3.3 mmol/L (-2.0-2.0); BG FRACTION INSPIRED OXYGEN 75; BG HCO3 ACT 29.2 mmol/L (22.0-26.0); BG METHEMOGLOBIN 0.2 % (0.0-1.5); BG OXYHEMOGLOBIN 98.8 % (94.0-97.0); BG PCO2 50.8 mmHg (35.0-45.0); BG PH 7.378 (7.350-7.450); BG PO2 214.8 mmHg (75.0-100.0); BG SAMPLE SITE RIGHT RADIAL; BG TOTAL HEMOGLOBIN 11.1 g/dL (12.0-18.0); BG TOTAL RESPIRATORY RATE 20 b/min; BG VENT MODE VENT - AC
[2021-07-28] MEDS: HYDRALAZINE HCL 50MG TABLET PO SCH ×3 (09:00→17:00)
[2021-07-28] MEDS: CARVEDILOL 12.5MG TABLET PO SCH ×3 (09:00→21:00)
[2021-07-28] MEDS: NIFEDIPINE XL 90MG TAB PO SCH (09:00)
[2021-07-28] MEDS: SEVELAMER CARBONATE 800 MG TABLET PO SCH ×3 (09:07→17:58)
[2021-07-28] MEDS: ASPIRIN 81MG TABLET PO SCH (09:07)
[2021-07-28] MEDS: ENOXAPARIN 30MG/0.3ML SYR SUBCUT SCH (09:07)
[2021-07-28] MEDS: FINASTERIDE 5MG TABLET PO SCH (09:07)
[2021-07-28] MEDS: PANTOPRAZOLE 40MG DR TABLET PO SCH (09:07)
[2021-07-28] MEDS: FERROUS SULFATE 325MG TABLET PO SCH ×2 (09:08→17:58)
[2021-07-28] MEDS: THIAMINE HCL 100MG TABLET PO SCH (09:08)
[2021-07-28] MEDS: PIPERACILLIN/TAZOBACTAM 3.375 G in DEXTROSE 5% WATER 50 ML IV SCH ×2 (13:01→20:50)
[2021-07-28] MEDS: FENTANYL CITRATE 2,500 MCG in SODIUM CHLORIDE 0.9% 200 ML IV PRN (15:48)
[2021-07-28] MEDS: METOCLOPRAMIDE HCL 10MG/2ML VIAL IV SCH ×2 (17:58→23:53)
[2021-07-28] MEDS: SENNOSIDES/DOCUSATE SOD 8.6/50MG TABLET PO SCH (20:53)
[2021-07-28] MEDS: FAMOTIDINE 20MG TABLET PO SCH (23:53)
[2021-07-29] VITALS (93 sets, daily range): BP systolic 71–156; BP diastolic 36–117
[2021-07-29] MEDS: IPRATROPIUM/ALBUTEROL 0.5-3(2.5)MG/3ML NEB HHN SCH ×4 (01:50→20:28)
[2021-07-29] MEDS: METOCLOPRAMIDE HCL 10MG/2ML VIAL IV SCH ×3 (06:17→17:59)
[2021-07-29] MEDS: PHENYLEPHRINE 100 MG in DEXT 5% WATER 240 ML IV PRN (06:17)
[2021-07-29] MEDS: BLOOD SUGAR DIAGNOSTIC STRIP TEST SCH ×4 (07:50→20:44)
[2021-07-29 08:15] LABS: BASOPHILS % 0.9 % (0.0-2.0); EOSINOPHILS % 3.2 % (0.0-5.0); HEMATOCRIT. 29.5 % (42.0-52.0); HEMOGLOBIN. 9.7 g/dL (14.0-18.0); LYMPHOCYTES % 7.5 % (20.0-50.0); MEAN CORPUSCULAR HEMOGLOBIN 29.6 pg (28.0-32.0); MEAN CORPUSCULAR VOLUME 90.6 fL (80.0-94.0); MEAN PLATELET VOLUME 8.2 fl (7.4-10.4); MONOCYTES % 7.1 % (2.0-8.0); NEUTROPHILS % 81.3 % (40.0-76.0); PLATELET 283 x1000/uL (130-400); RED BLOOD CELL COUNT 3.26 mill/uL (4.7-6.1); RED CELL DISTRIBUTION WIDTH 14.8 % (11.6-14.6)
[2021-07-29] MEDS: HYDRALAZINE HCL 50MG TABLET PO SCH ×3 (09:00→17:00)
[2021-07-29] MEDS: CARVEDILOL 12.5MG TABLET PO SCH ×2 (09:00→20:43)
[2021-07-29] MEDS: NIFEDIPINE XL 90MG TAB PO SCH (09:00)
[2021-07-29 09:15] LABS: BG BASE EXCESS 2.2 mmol/L (-2.0-2.0); BG CARBOXYHEMOGLOBIN 0.3 % (0.5-1.5); BG DEOXYHEMOGLOBIN 2.1 % (0.0-5.0); BG FRACTION INSPIRED OXYGEN 40; BG HCO3 ACT 26.3 mmol/L (22.0-26.0); BG METHEMOGLOBIN 0.2 % (0.0-1.5); BG OXYGEN SATURATION 97.9 % (92.0-98.5); BG OXYHEMOGLOBIN 97.4 % (94.0-97.0); BG PCO2 39.2 mmHg (35.0-45.0); BG PH 7.445 (7.350-7.450); BG PO2 120.2 mmHg (75.0-100.0); BG SAMPLE SITE RIGHT RADIAL; BG TOTAL HEMOGLOBIN 9.8 g/dL (12.0-18.0); BG TOTAL RESPIRATORY RATE 20 b/min; BG VENT MODE VENT - AC
[2021-07-29] MEDS: THIAMINE HCL 100MG TABLET PO SCH (09:42)
[2021-07-29] MEDS: ASPIRIN 81MG TABLET PO SCH (09:42)
[2021-07-29] MEDS: PIPERACILLIN/TAZOBACTAM 3.375 G in DEXTROSE 5% WATER 50 ML IV SCH ×2 (09:42→20:37)
[2021-07-29] MEDS: ENOXAPARIN 30MG/0.3ML SYR SUBCUT SCH (09:42)
[2021-07-29] MEDS: FINASTERIDE 5MG TABLET PO SCH (09:42)
[2021-07-29] MEDS: SEVELAMER CARBONATE 800 MG TABLET PO SCH ×3 (09:42→17:58)
[2021-07-29] MEDS: FERROUS SULFATE 325MG TABLET PO SCH ×2 (09:42→17:58)
[2021-07-29] MEDS: INSULIN LISPRO 100 UNITS/ML SUBCUT SCH ×4 (09:44→20:42)
[2021-07-29] MEDS ORDERED: PROPOFOL 10MG/ML 100ML 100 ML IV PRN (12:00)
[2021-07-29] MEDS: FAMOTIDINE 20MG TABLET PO SCH (20:38)
[2021-07-29] MEDS: SENNOSIDES/DOCUSATE SOD 8.6/50MG TABLET PO SCH (20:43)
[2021-07-30] VITALS (86 sets, daily range): BP systolic 75–213; BP diastolic 43–125
[2021-07-30] MEDS: FENTANYL CITRATE 2,500 MCG in SODIUM CHLORIDE 0.9% 200 ML IV PRN (00:45)
[2021-07-30] MEDS: METOCLOPRAMIDE HCL 10MG/2ML VIAL IV SCH ×5 (00:46→23:43)
[2021-07-30] MEDS: IPRATROPIUM/ALBUTEROL 0.5-3(2.5)MG/3ML NEB HHN SCH ×4 (04:36→21:00)
[2021-07-30 06:21] LABS: BASOPHILS % 0.7 % (0.0-2.0); EOSINOPHILS % 2.1 % (0.0-5.0); HEMATOCRIT. 29.6 % (42.0-52.0); HEMOGLOBIN. 9.6 g/dL (14.0-18.0); LYMPHOCYTES % 7.7 % (20.0-50.0); MEAN CORPUSCULAR HEMOGLOBIN 29.9 pg (28.0-32.0); MEAN CORPUSCULAR VOLUME 91.9 fL (80.0-94.0); MEAN PLATELET VOLUME 7.9 fl (7.4-10.4); MONOCYTES % 9.5 % (2.0-8.0); PLATELET 290 x1000/uL (130-400); RED BLOOD CELL COUNT 3.22 mill/uL (4.7-6.1); RED CELL DISTRIBUTION WIDTH 14.6 % (11.6-14.6)
[2021-07-30] MEDS: PHENYLEPHRINE 100 MG in DEXT 5% WATER 240 ML IV PRN (06:43)
[2021-07-30] MEDS: SEVELAMER CARBONATE 800 MG TABLET PO SCH ×3 (08:37→17:49)
[2021-07-30] MEDS: THIAMINE HCL 100MG TABLET PO SCH (08:37)
[2021-07-30] MEDS: ASPIRIN 81MG TABLET PO SCH (08:37)
[2021-07-30] MEDS: FINASTERIDE 5MG TABLET PO SCH (08:37)
[2021-07-30] MEDS: FERROUS SULFATE 325MG TABLET PO SCH ×2 (08:37→17:49)
[2021-07-30] MEDS: ENOXAPARIN 30MG/0.3ML SYR SUBCUT SCH (08:37)
[2021-07-30] MEDS: NIFEDIPINE XL 90MG TAB PO SCH (08:38)
[2021-07-30] MEDS: HYDRALAZINE HCL 50MG TABLET PO SCH ×3 (08:38→17:00)
[2021-07-30] MEDS: CARVEDILOL 12.5MG TABLET PO SCH ×2 (08:38→21:51)
[2021-07-30] MEDS: BLOOD SUGAR DIAGNOSTIC STRIP TEST SCH ×4 (08:38→21:00)
[2021-07-30] MEDS: PIPERACILLIN/TAZOBACTAM 3.375 G in DEXTROSE 5% WATER 50 ML IV SCH ×2 (08:39→21:51)
[2021-07-30] MEDS: INSULIN LISPRO 100 UNITS/ML SUBCUT SCH ×4 (08:40→22:03)
[2021-07-30 10:13] LABS: BG BASE EXCESS -0.9 mmol/L (-2.0-2.0); BG CARBOXYHEMOGLOBIN 0.1 % (0.5-1.5); BG DEOXYHEMOGLOBIN 3.3 % (0.0-5.0); BG FRACTION INSPIRED OXYGEN 40; BG METHEMOGLOBIN 0.3 % (0.0-1.5); BG OXYGEN SATURATION 96.7 % (92.0-98.5); BG OXYHEMOGLOBIN 96.3 % (94.0-97.0); BG PCO2 40.9 mmHg (35.0-45.0); BG PH 7.387 (7.350-7.450); BG PO2 98.4 mmHg (75.0-100.0); BG SAMPLE SITE RIGHT BRACHIAL; BG TOTAL HEMOGLOBIN 10.9 g/dL (12.0-18.0); BG VENT MODE VENT - AC
[2021-07-30] MEDS ORDERED: VANCOMYCIN 750 MG PREMIX 150 ML IV NR (11:00)
[2021-07-30] MEDS: FLUCONAZOLE 200 MG/100ML BAG 100 ML IV SCH (14:44)
[2021-07-30] MEDS: ACETYLCYSTEINE 100MG/ML 10% VIAL 4ML INH SCH (15:14)
[2021-07-30] MEDS: SENNOSIDES/DOCUSATE SOD 8.6/50MG TABLET PO SCH (21:00)
[2021-07-30] MEDS: FAMOTIDINE 20MG TABLET PO SCH (21:51)
[2021-07-31] VITALS (96 sets, daily range): BP systolic 76–173; BP diastolic 38–104
[2021-07-31] MEDS: ACETYLCYSTEINE 100MG/ML 10% VIAL 4ML INH SCH ×4 (01:34→21:23)
[2021-07-31] MEDS: IPRATROPIUM/ALBUTEROL 0.5-3(2.5)MG/3ML NEB HHN SCH ×4 (01:34→21:24)
[2021-07-31] MEDS: METOCLOPRAMIDE HCL 10MG/2ML VIAL IV SCH ×3 (05:19→17:01)
[2021-07-31 06:01] LABS: HEMATOCRIT. 28.3 % (42.0-52.0); HEMOGLOBIN. 9.4 g/dL (14.0-18.0); MEAN CORPUSCULAR HEMOGLOBIN 30.3 pg (28.0-32.0); MEAN CORPUSCULAR VOLUME 91.2 fL (80.0-94.0); MEAN PLATELET VOLUME 8.4 fl (7.4-10.4); PLATELET 248 x1000/uL (130-400); RED CELL DISTRIBUTION WIDTH 14.7 % (11.6-14.6)
[2021-07-31] MEDS: BLOOD SUGAR DIAGNOSTIC STRIP TEST SCH ×3 (07:50→17:01)
[2021-07-31] MEDS: HYDRALAZINE HCL 50MG TABLET PO SCH ×3 (09:00→16:40)
[2021-07-31] MEDS: NIFEDIPINE XL 90MG TAB PO SCH (09:00)
[2021-07-31] MEDS: CARVEDILOL 12.5MG TABLET PO SCH ×2 (09:00→21:26)
[2021-07-31 09:12] LABS: PLATELET ESTIMATE NORMAL
[2021-07-31] MEDS: ENOXAPARIN 30MG/0.3ML SYR SUBCUT SCH (09:14)
[2021-07-31] MEDS: PIPERACILLIN/TAZOBACTAM 3.375 G in DEXTROSE 5% WATER 50 ML IV SCH ×2 (09:14→21:25)
[2021-07-31] MEDS: FERROUS SULFATE 325MG TABLET PO SCH ×2 (09:15→17:00)
[2021-07-31] MEDS: ASPIRIN 81MG TABLET PO SCH (09:15)
[2021-07-31] MEDS: SEVELAMER CARBONATE 800 MG TABLET PO SCH ×3 (09:15→17:00)
[2021-07-31] MEDS: FINASTERIDE 5MG TABLET PO SCH (09:15)
[2021-07-31] MEDS: THIAMINE HCL 100MG TABLET PO SCH (09:15)
[2021-07-31] MEDS: INSULIN LISPRO 100 UNITS/ML SUBCUT SCH ×2 (09:25→17:02)
[2021-07-31 11:04] LABS: BG BASE EXCESS -0.8 mmol/L (-2.0-2.0); BG CARBOXYHEMOGLOBIN 0.2 % (0.5-1.5); BG DEOXYHEMOGLOBIN 1.8 % (0.0-5.0); BG FRACTION INSPIRED OXYGEN 40; BG HCO3 ACT 23.3 mmol/L (22.0-26.0); BG METHEMOGLOBIN 0.4 % (0.0-1.5); BG OXYGEN SATURATION 98.2 % (92.0-98.5); BG OXYHEMOGLOBIN 97.6 % (94.0-97.0); BG PCO2 36.8 mmHg (35.0-45.0); BG PO2 133.6 mmHg (75.0-100.0); BG SAMPLE SITE RIGHT BRACHIAL; BG TOTAL HEMOGLOBIN 11.2 g/dL (12.0-18.0); BG VENT MODE VENT - AC
[2021-07-31] MEDS: FLUCONAZOLE 200 MG/100ML BAG 100 ML IV SCH (11:54)
[2021-07-31] MEDS ORDERED: INSULIN LISPRO 100 UNITS/ML SUBCUT SCH (12:00)
[2021-07-31 13:41] LABS: BG BASE EXCESS 0.7 mmol/L (-2.0-2.0); BG CARBOXYHEMOGLOBIN 0.1 % (0.5-1.5); BG DEOXYHEMOGLOBIN 1.9 % (0.0-5.0); BG FRACTION INSPIRED OXYGEN 40; BG HCO3 ACT 25.1 mmol/L (22.0-26.0); BG METHEMOGLOBIN 0.3 % (0.0-1.5); BG OXYGEN SATURATION 98.1 % (92.0-98.5); BG OXYHEMOGLOBIN 97.7 % (94.0-97.0); BG PCO2 39.4 mmHg (35.0-45.0); BG PH 7.422 (7.350-7.450); BG PO2 127.5 mmHg (75.0-100.0); BG SAMPLE SITE RIGHT BRACHIAL; BG TOTAL HEMOGLOBIN 10.9 g/dL (12.0-18.0); BG VENT MODE VENT - CPAP
[2021-07-31] MEDS ORDERED: DEXTROSE 50% WATER 50ML SYRINGE IV PRN (14:30)
[2021-07-31] MEDS ORDERED: HYDROCODONE/ACETAMINOPHEN 5/325MG TABLET PO PRN (15:00)
[2021-07-31] MEDS ORDERED: NALOXONE HCL 0.4MG/ML VIAL IV PRN (15:15)
[2021-07-31] MEDS ORDERED: VANCOMYCIN 500 MG PREMIX 100 ML IV NR (18:00)
[2021-07-31] MEDS: SENNOSIDES/DOCUSATE SOD 8.6/50MG TABLET PO SCH (21:30)
[2021-07-31] MEDS: FAMOTIDINE 20MG TABLET PO SCH (21:30)
[2021-08-01] VITALS (54 sets, daily range): BP systolic 90–167; BP diastolic 29–84
[2021-08-01] MEDS: BLOOD SUGAR DIAGNOSTIC STRIP TEST SCH ×5 (00:21→23:47)
[2021-08-01] MEDS: METOCLOPRAMIDE HCL 10MG/2ML VIAL IV SCH ×5 (00:24→23:55)
[2021-08-01] MEDS: INSULIN LISPRO 100 UNITS/ML SUBCUT SCH ×5 (00:25→23:56)
[2021-08-01] MEDS: IPRATROPIUM/ALBUTEROL 0.5-3(2.5)MG/3ML NEB HHN SCH ×4 (02:12→21:26)
[2021-08-01 06:34] LABS: HEMATOCRIT. 29.6 % (42.0-52.0); HEMOGLOBIN. 9.7 g/dL (14.0-18.0); MEAN CORPUSCULAR HEMOGLOBIN 29.8 pg (28.0-32.0); MEAN CORPUSCULAR VOLUME 90.7 fL (80.0-94.0); MEAN PLATELET VOLUME 8.6 fl (7.4-10.4); PLATELET 309 x1000/uL (130-400); RED BLOOD CELL COUNT 3.26 mill/uL (4.7-6.1); RED CELL DISTRIBUTION WIDTH 14.4 % (11.6-14.6)
[2021-08-01 08:08] LABS: PLATELET ESTIMATE NORMAL
[2021-08-01] MEDS: ASPIRIN 81MG TABLET PO SCH (08:24)
[2021-08-01] MEDS: SEVELAMER CARBONATE 800 MG TABLET PO SCH ×3 (08:24→17:41)
[2021-08-01] MEDS: FERROUS SULFATE 325MG TABLET PO SCH ×2 (08:24→17:42)
[2021-08-01] MEDS: THIAMINE HCL 100MG TABLET PO SCH (08:24)
[2021-08-01] MEDS: FINASTERIDE 5MG TABLET PO SCH (08:24)
[2021-08-01] MEDS: ENOXAPARIN 30MG/0.3ML SYR SUBCUT SCH (08:25)
[2021-08-01] MEDS: CARVEDILOL 12.5MG TABLET PO SCH ×2 (08:26→21:23)
[2021-08-01] MEDS: ACETYLCYSTEINE 100MG/ML 10% VIAL 4ML INH SCH ×2 (08:41→14:23)
[2021-08-01] MEDS: HYDRALAZINE HCL 50MG TABLET PO SCH ×3 (09:00→17:41)
[2021-08-01] MEDS: NIFEDIPINE XL 90MG TAB PO SCH (09:00)
[2021-08-01] MEDS: FLUCONAZOLE 200 MG/100ML BAG 100 ML IV SCH (12:31)
[2021-08-01] MEDS: SENNOSIDES/DOCUSATE SOD 8.6/50MG TABLET PO SCH (21:00)
[2021-08-01] MEDS: FAMOTIDINE 20MG TABLET PO SCH (21:23)
[2021-08-02] VITALS (51 sets, daily range): BP systolic 98–150; BP diastolic 49–84
[2021-08-02] MEDS: IPRATROPIUM/ALBUTEROL 0.5-3(2.5)MG/3ML NEB HHN SCH ×4 (00:15→21:38)
[2021-08-02] MEDS: ACETYLCYSTEINE 100MG/ML 10% VIAL 4ML INH SCH ×3 (00:15→16:40)
[2021-08-02] MEDS: BLOOD SUGAR DIAGNOSTIC STRIP TEST SCH ×4 (05:52→23:39)
[2021-08-02] MEDS: METOCLOPRAMIDE HCL 10MG/2ML VIAL IV SCH ×4 (05:57→23:39)
[2021-08-02] MEDS: INSULIN LISPRO 100 UNITS/ML SUBCUT SCH ×2 (05:58→13:03)
[2021-08-02 06:26] LABS: BASOPHILS % 0.6 % (0.0-2.0); HEMATOCRIT. 29.3 % (42.0-52.0); HEMOGLOBIN. 9.7 g/dL (14.0-18.0); LYMPHOCYTES % 9.3 % (20.0-50.0); MEAN CORPUSCULAR HEMOGLOBIN 29.9 pg (28.0-32.0); MEAN CORPUSCULAR VOLUME 90.4 fL (80.0-94.0); MEAN PLATELET VOLUME 8.5 fl (7.4-10.4); MONOCYTES % 8.4 % (2.0-8.0); NEUTROPHILS % 79.7 % (40.0-76.0); PLATELET 306 x1000/uL (130-400); RED BLOOD CELL COUNT 3.24 mill/uL (4.7-6.1); RED CELL DISTRIBUTION WIDTH 14.7 % (11.6-14.6)
[2021-08-02] MEDS: ASPIRIN 81MG TABLET PO SCH (08:40)
[2021-08-02] MEDS: ENOXAPARIN 30MG/0.3ML SYR SUBCUT SCH (08:40)
[2021-08-02] MEDS: FINASTERIDE 5MG TABLET PO SCH (08:40)
[2021-08-02] MEDS: FERROUS SULFATE 325MG TABLET PO SCH ×2 (08:40→18:27)
[2021-08-02] MEDS: HYDRALAZINE HCL 50MG TABLET PO SCH ×3 (08:41→17:00)
[2021-08-02] MEDS: NIFEDIPINE XL 90MG TAB PO SCH (08:41)
[2021-08-02] MEDS: CARVEDILOL 12.5MG TABLET PO SCH ×3 (08:41→20:42)
[2021-08-02] MEDS: SEVELAMER CARBONATE 800 MG TABLET PO SCH ×3 (08:41→18:27)
[2021-08-02] MEDS: THIAMINE HCL 100MG TABLET PO SCH (08:41)
[2021-08-02] MEDS: FLUCONAZOLE 200 MG/100ML BAG 100 ML IV SCH (11:53)
[2021-08-02] MEDS: SENNOSIDES/DOCUSATE SOD 8.6/50MG TABLET PO SCH (20:35)
[2021-08-02] MEDS: FAMOTIDINE 20MG TABLET PO SCH (20:35)
[2021-08-03] VITALS (12 sets, daily range): BP systolic 101–153; BP diastolic 40–108
[2021-08-03] MEDS: ACETYLCYSTEINE 100MG/ML 10% VIAL 4ML INH SCH ×4 (01:02→15:35)
[2021-08-03] MEDS: IPRATROPIUM/ALBUTEROL 0.5-3(2.5)MG/3ML NEB HHN SCH ×4 (01:32→21:11)
[2021-08-03] MEDS: BLOOD SUGAR DIAGNOSTIC STRIP TEST SCH ×4 (05:32→23:03)
[2021-08-03] MEDS: INSULIN LISPRO 100 UNITS/ML SUBCUT SCH ×4 (05:43→17:11)
[2021-08-03] MEDS: METOCLOPRAMIDE HCL 10MG/2ML VIAL IV SCH ×4 (05:44→23:06)
[2021-08-03] MEDS: SEVELAMER CARBONATE 800 MG TABLET PO SCH ×3 (07:20→17:09)
[2021-08-03] MEDS: FINASTERIDE 5MG TABLET PO SCH (09:00)
[2021-08-03] MEDS: NIFEDIPINE XL 90MG TAB PO SCH (09:00)
[2021-08-03] MEDS: HYDRALAZINE HCL 50MG TABLET PO SCH ×3 (09:00→17:10)
[2021-08-03] MEDS: CARVEDILOL 12.5MG TABLET PO SCH ×2 (09:00→22:36)
[2021-08-03] MEDS: FERROUS SULFATE 325MG TABLET PO SCH ×2 (09:00→17:09)
[2021-08-03] MEDS: ASPIRIN 81MG TABLET PO SCH (11:41)
[2021-08-03] MEDS: THIAMINE HCL 100MG TABLET PO SCH (11:41)
[2021-08-03] MEDS: ENOXAPARIN 30MG/0.3ML SYR SUBCUT SCH (11:42)
[2021-08-03] MEDS: FLUCONAZOLE 200 MG/100ML BAG 100 ML IV SCH (13:09)
[2021-08-03] MEDS: SENNOSIDES/DOCUSATE SOD 8.6/50MG TABLET PO SCH (22:36)
[2021-08-03] MEDS: FAMOTIDINE 20MG TABLET PO SCH (22:36)
[2021-08-04] VITALS (13 sets, daily range): BP systolic 86–138; BP diastolic 40–71
[2021-08-04] MEDS: INSULIN LISPRO 100 UNITS/ML SUBCUT SCH ×4 (00:37→18:21)
[2021-08-04] MEDS: IPRATROPIUM/ALBUTEROL 0.5-3(2.5)MG/3ML NEB HHN SCH ×3 (01:02→14:18)
[2021-08-04] MEDS: BLOOD SUGAR DIAGNOSTIC STRIP TEST SCH ×3 (06:24→18:04)
[2021-08-04] MEDS: METOCLOPRAMIDE HCL 10MG/2ML VIAL IV SCH ×4 (06:24→23:57)
[2021-08-04] MEDS: NIFEDIPINE XL 90MG TAB PO SCH (08:28)
[2021-08-04] MEDS: FINASTERIDE 5MG TABLET PO SCH (08:29)
[2021-08-04] MEDS: HYDRALAZINE HCL 50MG TABLET PO SCH ×3 (08:37→17:00)
[2021-08-04] MEDS: CARVEDILOL 12.5MG TABLET PO SCH ×2 (08:38→20:32)
[2021-08-04] MEDS: ASPIRIN 81MG TABLET PO SCH (08:39)
[2021-08-04] MEDS: FERROUS SULFATE 325MG TABLET PO SCH ×2 (08:39→18:17)
[2021-08-04] MEDS: SEVELAMER CARBONATE 800 MG TABLET PO SCH ×3 (08:39→18:17)
[2021-08-04] MEDS: ENOXAPARIN 30MG/0.3ML SYR SUBCUT SCH (08:39)
[2021-08-04] MEDS: THIAMINE HCL 100MG TABLET PO SCH (08:39)
[2021-08-04] MEDS: ACETYLCYSTEINE 100MG/ML 10% VIAL 4ML INH SCH ×2 (10:13→14:18)
[2021-08-04 10:50] LABS: HEMATOCRIT. 28.6 % (42.0-52.0); HEMOGLOBIN. 9.5 g/dL (14.0-18.0); MEAN CORPUSCULAR HEMOGLOBIN 30.2 pg (28.0-32.0); MEAN CORPUSCULAR VOLUME 90.8 fL (80.0-94.0); MEAN PLATELET VOLUME 8.7 fl (7.4-10.4); PLATELET 352 x1000/uL (130-400); RED BLOOD CELL COUNT 3.15 mill/uL (4.7-6.1); RED CELL DISTRIBUTION WIDTH 14.6 % (11.6-14.6)
[2021-08-04] MEDS: SENNOSIDES/DOCUSATE SOD 8.6/50MG TABLET PO SCH (20:29)
[2021-08-04] MEDS: FAMOTIDINE 20MG TABLET PO SCH (20:29)
[2021-08-05] VITALS (17 sets, daily range): BP systolic 83–141; BP diastolic 42–79
[2021-08-05] MEDS: BLOOD SUGAR DIAGNOSTIC STRIP TEST SCH ×4 (00:04→17:38)
[2021-08-05] MEDS: INSULIN LISPRO 100 UNITS/ML SUBCUT SCH ×4 (00:07→17:36)
[2021-08-05] MEDS: IPRATROPIUM/ALBUTEROL 0.5-3(2.5)MG/3ML NEB HHN SCH ×4 (04:40→20:27)
[2021-08-05] MEDS: METOCLOPRAMIDE HCL 10MG/2ML VIAL IV SCH ×3 (06:02→17:35)
[2021-08-05] MEDS: SEVELAMER CARBONATE 800 MG TABLET PO SCH ×3 (07:20→17:35)
[2021-08-05 07:40] LABS: HEMATOCRIT. 31.9 % (42.0-52.0); HEMOGLOBIN. 10.5 g/dL (14.0-18.0); MEAN CORPUSCULAR HEMOGLOBIN 29.8 pg (28.0-32.0); MEAN CORPUSCULAR VOLUME 90.6 fL (80.0-94.0); MEAN PLATELET VOLUME 8.8 fl (7.4-10.4); PLATELET 402 x1000/uL (130-400); RED BLOOD CELL COUNT 3.52 mill/uL (4.7-6.1); RED CELL DISTRIBUTION WIDTH 15.2 % (11.6-14.6)
[2021-08-05] MEDS: HYDRALAZINE HCL 50MG TABLET PO SCH ×3 (09:00→16:32)
[2021-08-05] MEDS: CARVEDILOL 12.5MG TABLET PO SCH ×2 (09:00→20:25)
[2021-08-05] MEDS: NIFEDIPINE XL 90MG TAB PO SCH (09:00)
[2021-08-05] MEDS: ENOXAPARIN 30MG/0.3ML SYR SUBCUT SCH (12:13)
[2021-08-05] MEDS: FERROUS SULFATE 325MG TABLET PO SCH ×2 (12:13→17:35)
[2021-08-05] MEDS: THIAMINE HCL 100MG TABLET PO SCH (12:13)
[2021-08-05] MEDS: FINASTERIDE 5MG TABLET PO SCH (12:13)
[2021-08-05] MEDS: ASPIRIN 81MG TABLET PO SCH (12:13)
[2021-08-05] MEDS: PIPERACILLIN/TAZOBACTAM 3.375 G in DEXTROSE 5% WATER 50 ML IV SCH ×2 (13:11→20:30)
[2021-08-05] MEDS ORDERED: VANCOMYCIN 1500MG in DEXTROSE 5% WATER 250ML IV NR (14:00)
[2021-08-05 16:52] LABS: MEAN CORPUSCULAR HEMOGLOBIN 29.6 pg (28.0-32.0); MEAN CORPUSCULAR VOLUME 91.5 fL (80.0-94.0); PLATELET 431 x1000/uL (130-400); RED BLOOD CELL COUNT 3.39 mill/uL (4.7-6.1); RED CELL DISTRIBUTION WIDTH 14.4 % (11.6-14.6)
[2021-08-05] MEDS: PANTOPRAZOLE SODIUM 40 MG/VIAL IV SCH (17:35)
[2021-08-05 17:47] LABS: PLATELET ESTIMATE NORMAL
[2021-08-05] MEDS: SENNOSIDES/DOCUSATE SOD 8.6/50MG TABLET PO SCH (20:29)
[2021-08-05 21:31] LABS: PLATELET ESTIMATE INCREASED
[2021-08-06] VITALS (13 sets, daily range): BP systolic 90–142; BP diastolic 41–95
[2021-08-06] MEDS: BLOOD SUGAR DIAGNOSTIC STRIP TEST SCH ×4 (00:09→17:48)
[2021-08-06] MEDS: INSULIN LISPRO 100 UNITS/ML SUBCUT SCH ×4 (00:13→17:50)
[2021-08-06] MEDS: METOCLOPRAMIDE HCL 10MG/2ML VIAL IV SCH ×4 (00:13→17:48)
[2021-08-06] MEDS: ACETYLCYSTEINE 100MG/ML 10% VIAL 4ML INH SCH ×3 (00:52→14:45)
[2021-08-06] MEDS: IPRATROPIUM/ALBUTEROL 0.5-3(2.5)MG/3ML NEB HHN SCH ×4 (00:52→20:16)
[2021-08-06] MEDS: SEVELAMER CARBONATE 800 MG TABLET PO SCH ×3 (07:20→17:48)
[2021-08-06 07:29] LABS: HEMATOCRIT. 29.8 % (42.0-52.0); HEMOGLOBIN. 9.8 g/dL (14.0-18.0); MEAN CORPUSCULAR HEMOGLOBIN 29.8 pg (28.0-32.0); PLATELET 405 x1000/uL (130-400); RED BLOOD CELL COUNT 3.27 mill/uL (4.7-6.1); RED CELL DISTRIBUTION WIDTH 14.7 % (11.6-14.6)
[2021-08-06] MEDS: HYDRALAZINE HCL 50MG TABLET PO SCH ×3 (09:00→17:00)
[2021-08-06] MEDS: CARVEDILOL 12.5MG TABLET PO SCH ×2 (09:00→20:11)
[2021-08-06] MEDS: NIFEDIPINE XL 90MG TAB PO SCH (09:00)
[2021-08-06] MEDS: THIAMINE HCL 100MG TABLET PO SCH (09:17)
[2021-08-06] MEDS: PANTOPRAZOLE SODIUM 40 MG/VIAL IV SCH (09:17)
[2021-08-06] MEDS: FINASTERIDE 5MG TABLET PO SCH (09:17)
[2021-08-06] MEDS: ASPIRIN 81MG TABLET PO SCH (09:17)
[2021-08-06] MEDS: FERROUS SULFATE 325MG TABLET PO SCH ×2 (09:18→17:48)
[2021-08-06] MEDS: PIPERACILLIN/TAZOBACTAM 3.375 G in DEXTROSE 5% WATER 50 ML IV SCH (09:23)
[2021-08-06 09:55] LABS: BG BASE EXCESS -1.9 mmol/L (-2.0-2.0); BG CARBOXYHEMOGLOBIN 0.3 % (0.5-1.5); BG FRACTION INSPIRED OXYGEN 36; BG HCO3 ACT 21.7 mmol/L (22.0-26.0); BG METHEMOGLOBIN 0.3 % (0.0-1.5); BG OXYGEN SATURATION 90.9 % (92.0-98.5); BG OXYHEMOGLOBIN 90.4 % (94.0-97.0); BG PCO2 32.8 mmHg (35.0-45.0); BG PH 7.439 (7.350-7.450); BG PO2 67.3 mmHg (75.0-100.0); BG SAMPLE SITE RIGHT BRACHIAL; BG TOTAL HEMOGLOBIN 9.9 g/dL (12.0-18.0); BG VENT MODE NASAL CANNULA
[2021-08-06] MEDS ORDERED: SODIUM POLYSTYRENE SULFONATE 15 G/60 ML BOT PO SCH (10:00)
[2021-08-06] MEDS: ACETAMINOPHEN 650MG/20.3ML UDC PO PRN (10:11)
[2021-08-06 12:43] LABS: PLATELET ESTIMATE SLIGHTLY INCREASED
[2021-08-06] MEDS: SENNOSIDES/DOCUSATE SOD 8.6/50MG TABLET PO SCH (20:15)
[2021-08-06] MEDS ORDERED: VANCOMYCIN 500 MG PREMIX 100 ML IV SCH (21:00)
[2021-08-07] VITALS (11 sets, daily range): BP systolic 95–155; BP diastolic 52–86
[2021-08-07] MEDS: METOCLOPRAMIDE HCL 10MG/2ML VIAL IV SCH ×4 (00:06→17:53)
[2021-08-07] MEDS: BLOOD SUGAR DIAGNOSTIC STRIP TEST SCH ×4 (00:11→17:53)
[2021-08-07] MEDS: INSULIN LISPRO 100 UNITS/ML SUBCUT SCH ×4 (00:15→17:54)
[2021-08-07] MEDS: PIPERACILLIN/TAZOBACTAM 3.375 G in DEXTROSE 5% WATER 50 ML IV SCH ×3 (01:20→21:34)
[2021-08-07] MEDS: ACETYLCYSTEINE 100MG/ML 10% VIAL 4ML INH SCH ×4 (02:03→22:21)
[2021-08-07] MEDS: IPRATROPIUM/ALBUTEROL 0.5-3(2.5)MG/3ML NEB HHN SCH ×6 (02:03→22:21)
[2021-08-07] MEDS: NIFEDIPINE XL 90MG TAB PO SCH (09:00)
[2021-08-07] MEDS: FINASTERIDE 5MG TABLET PO SCH (09:00)
[2021-08-07] MEDS: HYDRALAZINE HCL 50MG TABLET PO SCH ×3 (09:00→17:00)
[2021-08-07] MEDS: CARVEDILOL 12.5MG TABLET PO SCH ×2 (09:00→21:00)
[2021-08-07] MEDS: ASPIRIN 81MG TABLET PO SCH (09:58)
[2021-08-07] MEDS: THIAMINE HCL 100MG TABLET PO SCH (09:58)
[2021-08-07] MEDS: SEVELAMER CARBONATE 800 MG TABLET PO SCH ×3 (09:58→17:53)
[2021-08-07] MEDS: PANTOPRAZOLE SODIUM 40 MG/VIAL IV SCH (09:58)
[2021-08-07] MEDS: FERROUS SULFATE 325MG TABLET PO SCH ×2 (10:03→17:53)
[2021-08-07 11:43] LABS: HEMATOCRIT. 29.2 % (42.0-52.0); HEMOGLOBIN. 9.5 g/dL (14.0-18.0); MEAN CORPUSCULAR HEMOGLOBIN 29.3 pg (28.0-32.0); MEAN CORPUSCULAR VOLUME 89.8 fL (80.0-94.0); MEAN PLATELET VOLUME 8.9 fl (7.4-10.4); PLATELET 430 x1000/uL (130-400); RED BLOOD CELL COUNT 3.25 mill/uL (4.7-6.1); RED CELL DISTRIBUTION WIDTH 14.5 % (11.6-14.6)
[2021-08-07 14:36] LABS: PLATELET ESTIMATE INCREASED
[2021-08-07] MEDS: SENNOSIDES/DOCUSATE SOD 8.6/50MG TABLET PO SCH (21:34)
[2021-08-08] VITALS (14 sets, daily range): BP systolic 58–131; BP diastolic 26–94
[2021-08-08] MEDS: BLOOD SUGAR DIAGNOSTIC STRIP TEST SCH ×4 (00:16→17:57)
[2021-08-08] MEDS: METOCLOPRAMIDE HCL 10MG/2ML VIAL IV SCH ×4 (00:17→17:59)
[2021-08-08] MEDS: INSULIN LISPRO 100 UNITS/ML SUBCUT SCH ×4 (00:26→18:00)
[2021-08-08] MEDS: IPRATROPIUM/ALBUTEROL 0.5-3(2.5)MG/3ML NEB HHN SCH ×6 (03:10→20:55)
[2021-08-08] MEDS: ACETYLCYSTEINE 100MG/ML 10% VIAL 4ML INH SCH ×3 (07:29→21:08)
[2021-08-08] MEDS: HYDRALAZINE HCL 50MG TABLET PO SCH ×3 (09:00→17:00)
[2021-08-08] MEDS: NIFEDIPINE XL 90MG TAB PO SCH (09:00)
[2021-08-08 09:02] LABS: HEMATOCRIT. 29.4 % (42.0-52.0); HEMOGLOBIN. 9.5 g/dL (14.0-18.0); MEAN CORPUSCULAR HEMOGLOBIN 29.7 pg (28.0-32.0); MEAN CORPUSCULAR VOLUME 91.9 fL (80.0-94.0); MEAN PLATELET VOLUME 8.6 fl (7.4-10.4); PLATELET 448 x1000/uL (130-400); RED CELL DISTRIBUTION WIDTH 14.8 % (11.6-14.6)
[2021-08-08] MEDS: PIPERACILLIN/TAZOBACTAM 3.375 G in DEXTROSE 5% WATER 50 ML IV SCH ×2 (10:00→20:57)
[2021-08-08] MEDS: FINASTERIDE 5MG TABLET PO SCH (10:01)
[2021-08-08] MEDS: ASPIRIN 81MG TABLET PO SCH (10:01)
[2021-08-08] MEDS: CARVEDILOL 12.5MG TABLET PO SCH ×2 (10:01→21:00)
[2021-08-08] MEDS: PANTOPRAZOLE SODIUM 40 MG/VIAL IV SCH (10:01)
[2021-08-08] MEDS: THIAMINE HCL 100MG TABLET PO SCH (10:01)
[2021-08-08] MEDS: SEVELAMER CARBONATE 800 MG TABLET PO SCH ×3 (10:01→17:59)
[2021-08-08] MEDS: FERROUS SULFATE 325MG TABLET PO SCH ×2 (10:04→17:59)
[2021-08-08 10:52] LABS: PLATELET ESTIMATE INCREASED
[2021-08-08 19:45] LABS: BG BASE EXCESS -0.2 mmol/L (-2.0-2.0); BG CARBOXYHEMOGLOBIN 0.4 % (0.5-1.5); BG DEOXYHEMOGLOBIN 7.4 % (0.0-5.0); BG FRACTION INSPIRED OXYGEN 100; BG HCO3 ACT 23.7 mmol/L (22.0-26.0); BG METHEMOGLOBIN 0.1 % (0.0-1.5); BG OXYGEN SATURATION 92.6 % (92.0-98.5); BG OXYHEMOGLOBIN 92.1 % (94.0-97.0); BG PH 7.436 (7.350-7.450); BG SAMPLE SITE RIGHT RADIAL; BG TOTAL HEMOGLOBIN 11.4 g/dL (12.0-18.0); BG VENT MODE MASK - NRB
[2021-08-08] MEDS ORDERED: NOREPINEPHRINE 8 MG in DEXT 5% WATER 242 ML IV SCH (20:15)
[2021-08-08] MEDS ORDERED: SODIUM CHLORIDE 0.9% 250 ML IV ONE (20:30)
[2021-08-08] MEDS: SENNOSIDES/DOCUSATE SOD 8.6/50MG TABLET PO SCH (21:00)
[2021-08-08] MEDS: NOREPINEPHRINE 8 MG in DEXT 5% WATER 242 ML IV PRN (23:43)
[2021-08-08] MEDS: ONDANSETRON HCL 4MG/2ML INJ IV PRN (23:49)
[2021-08-09] VITALS (91 sets, daily range): BP systolic 66–233; BP diastolic 25–120
[2021-08-09] MEDS: BLOOD SUGAR DIAGNOSTIC STRIP TEST SCH ×4 (00:08→17:31)
[2021-08-09] MEDS: METOCLOPRAMIDE HCL 10MG/2ML VIAL IV SCH ×4 (00:08→17:31)
[2021-08-09] MEDS: INSULIN LISPRO 100 UNITS/ML SUBCUT SCH ×4 (00:09→17:34)
[2021-08-09] MEDS ORDERED: ONDANSETRON HCL 4MG/2ML INJ IV PRN (00:30)
[2021-08-09] MEDS ORDERED: DEXT 5%/0.9% NACL 1,000 ML IV SCH (00:30)
[2021-08-09] MEDS: NOREPINEPHRINE 8 MG in DEXT 5% WATER 242 ML IV PRN ×2 (04:50→08:29)
[2021-08-09 05:15] LABS: HEMATOCRIT. 30.3 % (42.0-52.0); HEMOGLOBIN. 9.9 g/dL (14.0-18.0); MEAN CORPUSCULAR HEMOGLOBIN 30.2 pg (28.0-32.0); MEAN CORPUSCULAR VOLUME 92.2 fL (80.0-94.0); MEAN PLATELET VOLUME 8.9 fl (7.4-10.4); PLATELET 620 x1000/uL (130-400); RED BLOOD CELL COUNT 3.29 mill/uL (4.7-6.1); RED CELL DISTRIBUTION WIDTH 14.8 % (11.6-14.6)
[2021-08-09] MEDS ORDERED: DEXTROSE 50% WATER 50ML SYRINGE IV STA (06:20)
[2021-08-09] MEDS ORDERED: CALCIUM GLUCONATE 100MG/ML 10ML VIAL IV STA (06:20)
[2021-08-09] MEDS ORDERED: SODIUM BICARBONATE 8.4% 1 MEQ/ML 50ML SYR IV STA (06:20)
[2021-08-09] MEDS ORDERED: INSULIN REGULAR (HUMULIN R) 300UNITS/3ML VIAL IV STA (06:20)
[2021-08-09] MEDS ORDERED: SODIUM POLYSTYRENE SULFONATE 15 G/60 ML BOT PO STA (06:20)
[2021-08-09] MEDS ORDERED: SUCCINYLCHOLINE CHLORIDE 200MG/10ML IV ONE (08:18)
[2021-08-09] MEDS ORDERED: ETOMIDATE 2MG/ML 10ML VIAL IV ONE (08:18)
[2021-08-09] MEDS ORDERED: SODIUM CHLORIDE 0.9% 10ML VIAL ONE (08:18)
[2021-08-09] MEDS: CARVEDILOL 12.5MG TABLET PO SCH ×2 (09:00→20:04)
[2021-08-09] MEDS: NIFEDIPINE XL 90MG TAB PO SCH ×2 (09:00→09:18)
[2021-08-09] MEDS: FINASTERIDE 5MG TABLET PO SCH (09:00)
[2021-08-09] MEDS: HYDRALAZINE HCL 50MG TABLET PO SCH ×3 (09:00→17:00)
[2021-08-09] MEDS: SEVELAMER CARBONATE 800 MG TABLET PO SCH ×3 (09:17→17:31)
[2021-08-09] MEDS: PIPERACILLIN/TAZOBACTAM 3.375 G in DEXTROSE 5% WATER 50 ML IV SCH ×2 (09:17→20:12)
[2021-08-09] MEDS: ASPIRIN 81MG TABLET PO SCH (09:17)
[2021-08-09] MEDS: PANTOPRAZOLE SODIUM 40 MG/VIAL IV SCH (09:17)
[2021-08-09] MEDS: FERROUS SULFATE 325MG TABLET PO SCH ×2 (09:19→17:31)
[2021-08-09] MEDS: THIAMINE HCL 100MG TABLET PO SCH (09:19)
[2021-08-09 10:39] LABS: BG BASE EXCESS -3.3 mmol/L (-2.0-2.0); BG CARBOXYHEMOGLOBIN 0.4 % (0.5-1.5); BG DEOXYHEMOGLOBIN 18.1 % (0.0-5.0); BG FRACTION INSPIRED OXYGEN 21; BG METHEMOGLOBIN 0.3 % (0.0-1.5); BG OXYGEN SATURATION 81.8 % (92.0-98.5); BG OXYHEMOGLOBIN 81.2 % (94.0-97.0); BG PCO2 29.9 mmHg (35.0-45.0); BG PH 7.444 (7.350-7.450); BG TOTAL HEMOGLOBIN 10.1 g/dL (12.0-18.0); BG VENT MODE ROOM AIR
[2021-08-09] MEDS: DEXT 5%/0.9% NACL 1,000 ML IV SCH (11:34)
[2021-08-09] MEDS: IPRATROPIUM/ALBUTEROL 0.5-3(2.5)MG/3ML NEB HHN SCH ×3 (12:12→20:02)
[2021-08-09] MEDS: ACETYLCYSTEINE 100MG/ML 10% VIAL 4ML INH SCH (12:13)
[2021-08-09] MEDS: NOREPINEPHRINE 32 MG in DEXT 5% WATER 218 ML IV PRN (12:34)
[2021-08-09] MEDS ORDERED: PROPOFOL 10MG/ML 100ML 100 ML IV PRN ×2 (13:30)
[2021-08-09] MEDS: FENTANYL CITRATE/PF 2,500 MCG in SODIUM CHLORIDE 0.9% 200 ML IV PRN (13:58)
[2021-08-09 14:43] LABS: PLATELET ESTIMATE INCREASED
[2021-08-09 14:43] LABS: BG BASE EXCESS -0.6 mmol/L (-2.0-2.0); BG CARBOXYHEMOGLOBIN 0.5 % (0.5-1.5); BG DEOXYHEMOGLOBIN 19.1 % (0.0-5.0); BG FRACTION INSPIRED OXYGEN 100; BG HCO3 ACT 24.5 mmol/L (22.0-26.0); BG METHEMOGLOBIN 0.3 % (0.0-1.5); BG OXYGEN SATURATION 80.7 % (92.0-98.5); BG OXYHEMOGLOBIN 80.1 % (94.0-97.0); BG PCO2 42.1 mmHg (35.0-45.0); BG PH 7.383 (7.350-7.450); BG PO2 50.9 mmHg (75.0-100.0); BG SAMPLE SITE RIGHT BRACHIAL; BG TOTAL HEMOGLOBIN 11.4 g/dL (12.0-18.0); BG VENT MODE VENT - AC
[2021-08-09 15:19] LABS: BG BASE EXCESS -1.3 mmol/L (-2.0-2.0); BG CARBOXYHEMOGLOBIN 0.4 % (0.5-1.5); BG DEOXYHEMOGLOBIN 4.9 % (0.0-5.0); BG FRACTION INSPIRED OXYGEN 100; BG HCO3 ACT 23.3 mmol/L (22.0-26.0); BG METHEMOGLOBIN 0.3 % (0.0-1.5); BG OXYGEN SATURATION 95.1 % (92.0-98.5); BG OXYHEMOGLOBIN 94.4 % (94.0-97.0); BG PCO2 38.3 mmHg (35.0-45.0); BG PH 7.402 (7.350-7.450); BG PO2 87.6 mmHg (75.0-100.0); BG SAMPLE SITE LEFT RADIAL; BG TOTAL HEMOGLOBIN 10.1 g/dL (12.0-18.0); BG VENT MODE VENT - AC
[2021-08-09] MEDS: SENNOSIDES/DOCUSATE SOD 8.6/50MG TABLET PO SCH (20:05)
[2021-08-10] VITALS (91 sets, daily range): BP systolic 75–155; BP diastolic 50–114
[2021-08-10] MEDS: ACETYLCYSTEINE 100MG/ML 10% VIAL 4ML INH SCH ×3 (00:18→16:48)
[2021-08-10] MEDS: IPRATROPIUM/ALBUTEROL 0.5-3(2.5)MG/3ML NEB HHN SCH ×6 (00:19→19:52)
[2021-08-10] MEDS: METOCLOPRAMIDE HCL 10MG/2ML VIAL IV SCH ×4 (00:57→17:24)
[2021-08-10] MEDS: BLOOD SUGAR DIAGNOSTIC STRIP TEST SCH ×4 (00:57→17:25)
[2021-08-10] MEDS: INSULIN LISPRO 100 UNITS/ML SUBCUT SCH ×4 (00:58→17:26)
[2021-08-10 05:50] LABS: HEMATOCRIT. 24.8 % (42.0-52.0); HEMOGLOBIN. 8.1 g/dL (14.0-18.0); MEAN CORPUSCULAR HEMOGLOBIN 30.1 pg (28.0-32.0); MEAN CORPUSCULAR VOLUME 91.6 fL (80.0-94.0); PLATELET 396 x1000/uL (130-400); RED BLOOD CELL COUNT 2.71 mill/uL (4.7-6.1); RED CELL DISTRIBUTION WIDTH 14.6 % (11.6-14.6)
[2021-08-10] MEDS: FERROUS SULFATE 325MG TABLET PO SCH ×2 (08:56→17:25)
[2021-08-10] MEDS: PANTOPRAZOLE SODIUM 40 MG/VIAL IV SCH (08:56)
[2021-08-10] MEDS: SEVELAMER CARBONATE 800 MG TABLET PO SCH ×3 (08:56→17:24)
[2021-08-10] MEDS: ASPIRIN 81MG TABLET PO SCH (08:56)
[2021-08-10] MEDS: FINASTERIDE 5MG TABLET PO SCH (08:57)
[2021-08-10] MEDS: THIAMINE HCL 100MG TABLET PO SCH (08:57)
[2021-08-10] MEDS: PIPERACILLIN/TAZOBACTAM 3.375 G in DEXTROSE 5% WATER 50 ML IV SCH ×2 (08:57→20:05)
[2021-08-10] MEDS ORDERED: SODIUM CHLORIDE 3% FOR INH 15ML VIAL NEB INH SCH (10:00)
[2021-08-10 10:20] LABS: BG BASE EXCESS 0.7 mmol/L (-2.0-2.0); BG DEOXYHEMOGLOBIN 0.6 % (0.0-5.0); BG FRACTION INSPIRED OXYGEN 100; BG METHEMOGLOBIN 0.3 % (0.0-1.5); BG OXYGEN SATURATION 99.4 % (92.0-98.5); BG OXYHEMOGLOBIN 99.1 % (94.0-97.0); BG PCO2 38.6 mmHg (35.0-45.0); BG PH 7.429 (7.350-7.450); BG PO2 269.7 mmHg (75.0-100.0); BG SAMPLE SITE RIGHT RADIAL; BG TOTAL HEMOGLOBIN 8.9 g/dL (12.0-18.0); BG VENT MODE VENT - AC
[2021-08-10] MEDS: DEXT 5%/0.9% NACL 1,000 ML IV SCH (10:45)
[2021-08-10 11:44] LABS: PLATELET ESTIMATE NORMAL
[2021-08-10] MEDS ORDERED: PROPOFOL 10MG/ML 100ML 100 ML IV PRN (13:00)
[2021-08-10] MEDS: FENTANYL CITRATE/PF 2,500 MCG in SODIUM CHLORIDE 0.9% 200 ML IV PRN (16:23)
[2021-08-10] MEDS: SENNOSIDES/DOCUSATE SOD 8.6/50MG TABLET PO SCH (20:05)
[2021-08-10] MEDS: SODIUM CHLORIDE 3% FOR INH 4ML UD NEB INH SCH (20:45)
[2021-08-10] MEDS: INSULIN GLARGINE UD 100 UNITS/ML SYR SUBCUT SCH (22:37)
[2021-08-11] VITALS (98 sets, daily range): BP systolic 57–160; BP diastolic 25–90
[2021-08-11] MEDS: BLOOD SUGAR DIAGNOSTIC STRIP TEST SCH ×4 (00:16→18:10)
[2021-08-11] MEDS: IPRATROPIUM/ALBUTEROL 0.5-3(2.5)MG/3ML NEB HHN SCH ×6 (00:19→20:49)
[2021-08-11] MEDS: METOCLOPRAMIDE HCL 10MG/2ML VIAL IV SCH ×4 (00:22→17:45)
[2021-08-11] MEDS: INSULIN LISPRO 100 UNITS/ML SUBCUT SCH ×4 (00:24→18:12)
[2021-08-11] MEDS: NOREPINEPHRINE 32 MG in DEXT 5% WATER 218 ML IV PRN (06:40)
[2021-08-11] MEDS: DEXT 5%/0.9% NACL 1,000 ML IV SCH (06:41)
[2021-08-11 06:56] LABS: HEMATOCRIT. 25.4 % (42.0-52.0); HEMOGLOBIN. 8.1 g/dL (14.0-18.0); MEAN CORPUSCULAR HEMOGLOBIN 29.6 pg (28.0-32.0); MEAN CORPUSCULAR VOLUME 93.1 fL (80.0-94.0); MEAN PLATELET VOLUME 8.9 fl (7.4-10.4); PLATELET 370 x1000/uL (130-400); RED BLOOD CELL COUNT 2.73 mill/uL (4.7-6.1); RED CELL DISTRIBUTION WIDTH 14.6 % (11.6-14.6)
[2021-08-11] MEDS: FERROUS SULFATE 325MG TABLET PO SCH ×2 (08:14→17:45)
[2021-08-11] MEDS: SEVELAMER CARBONATE 800 MG TABLET PO SCH ×3 (08:14→18:11)
[2021-08-11] MEDS: ASPIRIN 81MG TABLET PO SCH (08:14)
[2021-08-11] MEDS: FINASTERIDE 5MG TABLET PO SCH (08:14)
[2021-08-11] MEDS: THIAMINE HCL 100MG TABLET PO SCH (08:14)
[2021-08-11] MEDS: PANTOPRAZOLE SODIUM 40 MG/VIAL IV SCH (08:14)
[2021-08-11] MEDS: SODIUM CHLORIDE 3% FOR INH 4ML UD NEB INH SCH ×2 (08:35→16:40)
[2021-08-11 09:31] LABS: BG BASE EXCESS -0.8 mmol/L (-2.0-2.0); BG CARBOXYHEMOGLOBIN 0.9 % (0.5-1.5); BG DEOXYHEMOGLOBIN 4.1 % (0.0-5.0); BG FRACTION INSPIRED OXYGEN 50; BG HCO3 ACT 25.1 mmol/L (22.0-26.0); BG METHEMOGLOBIN 0.4 % (0.0-1.5); BG OXYGEN SATURATION 95.8 % (92.0-98.5); BG OXYHEMOGLOBIN 94.6 % (94.0-97.0); BG PCO2 48.2 mmHg (35.0-45.0); BG PH 7.335 (7.350-7.450); BG PO2 93.3 mmHg (75.0-100.0); BG SAMPLE SITE RIGHT RADIAL; BG VENT MODE VENT - AC
[2021-08-11] MEDS: PIPERACILLIN/TAZOBACTAM 3.375 G in DEXTROSE 5% WATER 50 ML IV SCH ×2 (10:40→22:15)
[2021-08-11] MEDS: FENTANYL CITRATE/PF 2,500 MCG in SODIUM CHLORIDE 0.9% 200 ML IV PRN (10:40)
[2021-08-11 13:02] LABS: PLATELET ESTIMATE NORMAL
[2021-08-11] MEDS ORDERED: VANCOMYCIN 500 MG PREMIX 100 ML IV SCH (21:00)
[2021-08-11] MEDS: SENNOSIDES/DOCUSATE SOD 8.6/50MG TABLET PO SCH (22:15)
[2021-08-11] MEDS: INSULIN GLARGINE UD 100 UNITS/ML SYR SUBCUT SCH (22:24)
[2021-08-12] VITALS (96 sets, daily range): BP systolic 68–204; BP diastolic 25–119
[2021-08-12] MEDS: BLOOD SUGAR DIAGNOSTIC STRIP TEST SCH ×4 (00:12→17:37)
[2021-08-12] MEDS: METOCLOPRAMIDE HCL 10MG/2ML VIAL IV SCH ×5 (00:17→23:58)
[2021-08-12] MEDS: INSULIN LISPRO 100 UNITS/ML SUBCUT SCH ×4 (00:19→17:47)
[2021-08-12] MEDS: IPRATROPIUM/ALBUTEROL 0.5-3(2.5)MG/3ML NEB HHN SCH ×6 (00:21→20:16)
[2021-08-12] MEDS: FENTANYL CITRATE/PF 2,500 MCG in SODIUM CHLORIDE 0.9% 200 ML IV PRN ×2 (03:37→17:47)
[2021-08-12 07:09] LABS: HEMATOCRIT. 23.9 % (42.0-52.0); HEMOGLOBIN. 7.9 g/dL (14.0-18.0); MEAN CORPUSCULAR HEMOGLOBIN 30.4 pg (28.0-32.0); MEAN CORPUSCULAR VOLUME 92.4 fL (80.0-94.0); PLATELET 357 x1000/uL (130-400); RED BLOOD CELL COUNT 2.59 mill/uL (4.7-6.1); RED CELL DISTRIBUTION WIDTH 14.5 % (11.6-14.6)
[2021-08-12 07:53] LABS: BG BASE EXCESS -1.2 mmol/L (-2.0-2.0); BG CARBOXYHEMOGLOBIN 0.5 % (0.5-1.5); BG DEOXYHEMOGLOBIN 1.7 % (0.0-5.0); BG HCO3 ACT 24.6 mmol/L (22.0-26.0); BG METHEMOGLOBIN 0.2 % (0.0-1.5); BG OXYGEN SATURATION 98.3 % (92.0-98.5); BG OXYHEMOGLOBIN 97.6 % (94.0-97.0); BG PH 7.337 (7.350-7.450); BG PO2 133.9 mmHg (75.0-100.0); BG SAMPLE SITE RIGHT BRACHIAL; BG TOTAL HEMOGLOBIN 7.8 g/dL (12.0-18.0); BG VENT MODE VENT - AC
[2021-08-12] MEDS: FINASTERIDE 5MG TABLET PO SCH (09:31)
[2021-08-12] MEDS: FERROUS SULFATE 325MG TABLET PO SCH ×2 (09:31→17:49)
[2021-08-12] MEDS: THIAMINE HCL 100MG TABLET PO SCH (09:31)
[2021-08-12] MEDS: SEVELAMER CARBONATE 800 MG TABLET PO SCH ×3 (09:31→17:47)
[2021-08-12] MEDS: ASPIRIN 81MG TABLET PO SCH (09:31)
[2021-08-12] MEDS: PIPERACILLIN/TAZOBACTAM 3.375 G in DEXTROSE 5% WATER 50 ML IV SCH ×2 (09:31→20:38)
[2021-08-12] MEDS: PANTOPRAZOLE SODIUM 40 MG/VIAL IV SCH (10:25)
[2021-08-12 11:57] LABS: PLATELET ESTIMATE NORMAL
[2021-08-12 14:27] LABS: INR 1.1; PARTIAL THROMBOPLASTIN TIME 24.1 sec (23.4-31.0); PROTHROMBIN TIME 11.7 sec (9.6-11.0)
[2021-08-12] MEDS ORDERED: HEPARIN 1000 UNITS/ML 10ML ONE (14:47)
[2021-08-12 14:49] LABS: PHOSPHORUS 12.7 mg/dL (2.5-4.9)
[2021-08-12] MEDS: CALCIUM ACETATE 667MG CAPSULE PO SCH (17:47)
[2021-08-12] MEDS: SENNOSIDES/DOCUSATE SOD 8.6/50MG TABLET PO SCH (20:38)
[2021-08-12] MEDS: INSULIN GLARGINE UD 100 UNITS/ML SYR SUBCUT SCH (22:04)
[2021-08-13] VITALS (93 sets, daily range): BP systolic 45–221; BP diastolic 28–179
[2021-08-13] MEDS: BLOOD SUGAR DIAGNOSTIC STRIP TEST SCH ×5 (00:01→23:25)
[2021-08-13] MEDS: INSULIN LISPRO 100 UNITS/ML SUBCUT SCH ×5 (00:01→23:37)
[2021-08-13] MEDS: IPRATROPIUM/ALBUTEROL 0.5-3(2.5)MG/3ML NEB HHN SCH ×6 (00:25→20:59)
[2021-08-13] MEDS: METOCLOPRAMIDE HCL 10MG/2ML VIAL IV SCH ×4 (05:53→23:34)
[2021-08-13 06:12] LABS: HEMATOCRIT. 22.6 % (42.0-52.0); HEMOGLOBIN. 7.4 g/dL (14.0-18.0); MEAN CORPUSCULAR HEMOGLOBIN 30.2 pg (28.0-32.0); MEAN CORPUSCULAR VOLUME 92.3 fL (80.0-94.0); MEAN PLATELET VOLUME 8.4 fl (7.4-10.4); PLATELET 325 x1000/uL (130-400); RED BLOOD CELL COUNT 2.45 mill/uL (4.7-6.1); RED CELL DISTRIBUTION WIDTH 14.3 % (11.6-14.6)
[2021-08-13] MEDS: FENTANYL CITRATE/PF 2,500 MCG in SODIUM CHLORIDE 0.9% 200 ML IV PRN (06:53)
[2021-08-13] MEDS: THIAMINE HCL 100MG TABLET PO SCH (09:04)
[2021-08-13] MEDS: CALCIUM ACETATE 667MG CAPSULE PO SCH ×3 (09:04→17:42)
[2021-08-13] MEDS: SEVELAMER CARBONATE 800 MG TABLET PO SCH ×3 (09:04→17:42)
[2021-08-13] MEDS: ASPIRIN 81MG TABLET PO SCH (09:04)
[2021-08-13] MEDS: FERROUS SULFATE 325MG TABLET PO SCH ×2 (09:04→17:42)
[2021-08-13] MEDS: PANTOPRAZOLE SODIUM 40 MG/VIAL IV SCH (09:04)
[2021-08-13] MEDS: FINASTERIDE 5MG TABLET PO SCH (09:04)
[2021-08-13 09:07] LABS: BG BASE EXCESS 1.5 mmol/L (-2.0-2.0); BG CARBOXYHEMOGLOBIN 0.9 % (0.5-1.5); BG DEOXYHEMOGLOBIN 5.8 % (0.0-5.0); BG FRACTION INSPIRED OXYGEN 30; BG HCO3 ACT 26.3 mmol/L (22.0-26.0); BG METHEMOGLOBIN 0.3 % (0.0-1.5); BG OXYGEN SATURATION 94.1 % (92.0-98.5); BG PCO2 42.8 mmHg (35.0-45.0); BG PH 7.407 (7.350-7.450); BG PO2 74.9 mmHg (75.0-100.0); BG SAMPLE SITE RIGHT BRACHIAL; BG VENT MODE VENT - AC
[2021-08-13 12:02] LABS: BG BASE EXCESS 1.6 mmol/L (-2.0-2.0); BG DEOXYHEMOGLOBIN 4.9 % (0.0-5.0); BG FRACTION INSPIRED OXYGEN 30; BG HCO3 ACT 26.2 mmol/L (22.0-26.0); BG METHEMOGLOBIN 0.1 % (0.0-1.5); BG PCO2 41.3 mmHg (35.0-45.0); BG PO2 78.5 mmHg (75.0-100.0); BG SAMPLE SITE RIGHT RADIAL; BG TOTAL HEMOGLOBIN 7.5 g/dL (12.0-18.0); BG VENT MODE VENT - CPAP
[2021-08-13 13:22] LABS: PLATELET ESTIMATE NORMAL
[2021-08-13] MEDS: SENNOSIDES/DOCUSATE SOD 8.6/50MG TABLET PO SCH (20:59)
[2021-08-13] MEDS: INSULIN GLARGINE UD 100 UNITS/ML SYR SUBCUT SCH (21:00)
[2021-08-14] VITALS (106 sets, daily range): BP systolic 72–168; BP diastolic 29–87
[2021-08-14] MEDS: IPRATROPIUM/ALBUTEROL 0.5-3(2.5)MG/3ML NEB HHN SCH ×7 (01:10→20:53)
[2021-08-14] MEDS: BLOOD SUGAR DIAGNOSTIC STRIP TEST SCH ×3 (05:21→17:51)
[2021-08-14] MEDS: ACETAMINOPHEN 650MG/20.3ML UDC PO PRN ×2 (05:30→19:53)
[2021-08-14] MEDS: INSULIN LISPRO 100 UNITS/ML SUBCUT SCH ×3 (05:31→18:17)
[2021-08-14] MEDS: METOCLOPRAMIDE HCL 10MG/2ML VIAL IV SCH ×3 (05:32→18:01)
[2021-08-14 06:00] LABS: MEAN CORPUSCULAR VOLUME 90.6 fL (80.0-94.0); MEAN PLATELET VOLUME 8.4 fl (7.4-10.4); PLATELET 316 x1000/uL (130-400); RED CELL DISTRIBUTION WIDTH 14.3 % (11.6-14.6)
[2021-08-14 06:05] LABS: HEMATOCRIT. 20.8 % (42.0-52.0); HEMOGLOBIN. 6.9 g/dL (14.0-18.0)
[2021-08-14] MEDS: CALCIUM ACETATE 667MG CAPSULE PO SCH ×3 (09:23→18:01)
[2021-08-14] MEDS: SEVELAMER CARBONATE 800 MG TABLET PO SCH ×3 (09:23→18:01)
[2021-08-14] MEDS: FINASTERIDE 5MG TABLET PO SCH (09:23)
[2021-08-14] MEDS: THIAMINE HCL 100MG TABLET PO SCH (09:23)
[2021-08-14] MEDS: FERROUS SULFATE 325MG TABLET PO SCH ×2 (09:23→18:01)
[2021-08-14] MEDS: MIDODRINE HCL 5MG TABLET PO SCH ×4 (09:32→22:13)
[2021-08-14 09:33] LABS: PLATELET ESTIMATE NORMAL
[2021-08-14] MEDS: PANTOPRAZOLE SODIUM 40 MG/VIAL IV SCH (10:08)
[2021-08-14 14:55] LABS: TOTAL IRON BINDING CAPACITY 123 ug/dL (250-450)
[2021-08-14 15:02] LABS: FOLIC ACID (FOLATE) SERUM 15.1 ng/mL (>5.38)
[2021-08-14 20:37] LABS: INR 1.1; PROTHROMBIN TIME 11.4 sec (9.6-11.0)
[2021-08-14 20:43] LABS: HEMATOCRIT 25.5 % (42.0-52.0); HEMOGLOBIN 8.2 g/dL (14.0-18.0)
[2021-08-14] MEDS: SENNOSIDES/DOCUSATE SOD 8.6/50MG TABLET PO SCH (21:27)
[2021-08-14] MEDS: INSULIN GLARGINE UD 100 UNITS/ML SYR SUBCUT SCH (22:15)
[2021-08-14] MEDS ORDERED: CHLORPROMAZINE HCL 25 MG TABLET PO PRN (22:45)
[2021-08-14] MEDS: NOREPINEPHRINE 32 MG in DEXT 5% WATER 218 ML IV PRN (23:54)
[2021-08-15] VITALS (102 sets, daily range): BP systolic 67–172; BP diastolic 30–122
[2021-08-15] MEDS: METOCLOPRAMIDE HCL 10MG/2ML VIAL IV SCH ×4 (00:53→17:36)
[2021-08-15] MEDS: BLOOD SUGAR DIAGNOSTIC STRIP TEST SCH ×4 (00:54→17:33)
[2021-08-15] MEDS: INSULIN LISPRO 100 UNITS/ML SUBCUT SCH ×4 (00:54→17:33)
[2021-08-15] MEDS: IPRATROPIUM/ALBUTEROL 0.5-3(2.5)MG/3ML NEB HHN SCH ×5 (01:25→20:37)
[2021-08-15] MEDS: THIAMINE HCL 100MG TABLET PO SCH ×2 (08:54→17:29)
[2021-08-15] MEDS: CALCIUM ACETATE 667MG CAPSULE PO SCH ×3 (08:54→17:29)
[2021-08-15] MEDS: PANTOPRAZOLE SODIUM 40 MG/VIAL IV SCH (08:54)
[2021-08-15] MEDS: SEVELAMER CARBONATE 800 MG TABLET PO SCH ×3 (08:54→17:30)
[2021-08-15] MEDS: FINASTERIDE 5MG TABLET PO SCH (08:54)
[2021-08-15] MEDS: FERROUS SULFATE 325MG TABLET PO SCH ×2 (08:54→17:36)
[2021-08-15 09:55] LABS: BASOPHILS % 0.5 % (0.0-2.0); EOSINOPHILS % 2.1 % (0.0-5.0); HEMATOCRIT. 26.9 % (42.0-52.0); HEMOGLOBIN. 8.9 g/dL (14.0-18.0); LYMPHOCYTES % 7.6 % (20.0-50.0); MEAN CORPUSCULAR HEMOGLOBIN 29.9 pg (28.0-32.0); MEAN CORPUSCULAR VOLUME 90.3 fL (80.0-94.0); MEAN PLATELET VOLUME 8.6 fl (7.4-10.4); MONOCYTES % 7.5 % (2.0-8.0); NEUTROPHILS % 82.3 % (40.0-76.0); PLATELET 299 x1000/uL (130-400); RED BLOOD CELL COUNT 2.98 mill/uL (4.7-6.1); RED CELL DISTRIBUTION WIDTH 15.2 % (11.6-14.6)
[2021-08-15] MEDS: MIDODRINE HCL 5MG TABLET PO SCH ×2 (12:14→17:30)
[2021-08-15] MEDS: SENNOSIDES/DOCUSATE SOD 8.6/50MG TABLET PO SCH (21:12)
[2021-08-15] MEDS: INSULIN GLARGINE UD 100 UNITS/ML SYR SUBCUT SCH (22:11)
[2021-08-16] VITALS (76 sets, daily range): BP systolic 66–183; BP diastolic 23–105
[2021-08-16] MEDS: IPRATROPIUM/ALBUTEROL 0.5-3(2.5)MG/3ML NEB HHN SCH ×6 (00:20→20:32)
[2021-08-16] MEDS: BLOOD SUGAR DIAGNOSTIC STRIP TEST SCH ×4 (00:21→18:00)
[2021-08-16] MEDS: METOCLOPRAMIDE HCL 10MG/2ML VIAL IV SCH ×4 (00:25→18:00)
[2021-08-16] MEDS: INSULIN LISPRO 100 UNITS/ML SUBCUT SCH ×4 (00:32→18:00)
[2021-08-16 05:53] LABS: BASOPHILS % 0.9 % (0.0-2.0); EOSINOPHILS % 3.5 % (0.0-5.0); HEMATOCRIT. 22.8 % (42.0-52.0); HEMOGLOBIN. 7.7 g/dL (14.0-18.0); LYMPHOCYTES % 13.1 % (20.0-50.0); MEAN CORPUSCULAR HEMOGLOBIN 30.8 pg (28.0-32.0); MEAN CORPUSCULAR VOLUME 90.6 fL (80.0-94.0); MEAN PLATELET VOLUME 8.6 fl (7.4-10.4); MONOCYTES % 8.9 % (2.0-8.0); NEUTROPHILS % 73.6 % (40.0-76.0); PLATELET 296 x1000/uL (130-400); RED BLOOD CELL COUNT 2.52 mill/uL (4.7-6.1); RED CELL DISTRIBUTION WIDTH 14.7 % (11.6-14.6)
[2021-08-16 06:07] LABS: PHOSPHORUS 3.9 mg/dL (2.5-4.9)
[2021-08-16] MEDS: MIDODRINE HCL 5MG TABLET PO SCH ×3 (09:00→17:00)
[2021-08-16] MEDS: CALCIUM ACETATE 667MG CAPSULE PO SCH ×3 (09:55→18:20)
[2021-08-16] MEDS: FINASTERIDE 5MG TABLET PO SCH (09:56)
[2021-08-16] MEDS: FERROUS SULFATE 325MG TABLET PO SCH ×2 (09:56→17:00)
[2021-08-16] MEDS: PANTOPRAZOLE SODIUM 40 MG/VIAL IV SCH (09:56)
[2021-08-16] MEDS: SEVELAMER CARBONATE 800 MG TABLET PO SCH ×3 (09:56→18:20)
[2021-08-16] MEDS ORDERED: ONDANSETRON INJ 8 MG in DEXTROSE 5% WATER 50 ML IV PRN ×2 (11:30→11:45)
[2021-08-16] MEDS: SENNOSIDES/DOCUSATE SOD 8.6/50MG TABLET PO SCH (21:39)
[2021-08-16] MEDS: INSULIN GLARGINE UD 100 UNITS/ML SYR SUBCUT SCH (21:39)
[2021-08-17] VITALS (16 sets, daily range): BP systolic 96–143; BP diastolic 40–92
[2021-08-17] MEDS: IPRATROPIUM/ALBUTEROL 0.5-3(2.5)MG/3ML NEB HHN SCH ×4 (00:36→21:25)
[2021-08-17] MEDS: INSULIN LISPRO 100 UNITS/ML SUBCUT SCH ×5 (00:53→23:52)
[2021-08-17] MEDS: BLOOD SUGAR DIAGNOSTIC STRIP TEST SCH ×5 (00:54→23:52)
[2021-08-17] MEDS: METOCLOPRAMIDE HCL 10MG/2ML VIAL IV SCH (00:54)
[2021-08-17] MEDS ORDERED: ONDANSETRON HCL 4MG/2ML INJ IV SCH (06:45)
[2021-08-17] MEDS: PANTOPRAZOLE SODIUM 40 MG/VIAL IV SCH (08:30)
[2021-08-17] MEDS: SEVELAMER CARBONATE 800 MG TABLET PO SCH ×3 (08:31→18:39)
[2021-08-17] MEDS: CALCIUM ACETATE 667MG CAPSULE PO SCH ×3 (08:31→18:39)
[2021-08-17] MEDS: FERROUS SULFATE 325MG TABLET PO SCH ×2 (08:32→18:39)
[2021-08-17] MEDS: FINASTERIDE 5MG TABLET PO SCH (08:32)
[2021-08-17] MEDS: MIDODRINE HCL 5MG TABLET PO SCH ×3 (08:32→17:00)
[2021-08-17] MEDS: THIAMINE HCL 100MG TABLET PO SCH (08:32)
[2021-08-17 09:50] LABS: INR 1.1; PARTIAL THROMBOPLASTIN TIME 24.7 sec (23.4-31.0); PROTHROMBIN TIME 11.3 sec (9.6-11.0)
[2021-08-17] MEDS: ONDANSETRON INJ 8 MG in DEXTROSE 5% WATER 50 ML IV SCH ×3 (10:09→21:18)
[2021-08-17] MEDS: SENNOSIDES/DOCUSATE SOD 8.6/50MG TABLET PO SCH (21:18)
[2021-08-17] MEDS: INSULIN GLARGINE UD 100 UNITS/ML SYR SUBCUT SCH (21:19)
[2021-08-18] VITALS (38 sets, daily range): BP systolic 115–188; BP diastolic 48–92
[2021-08-18] MEDS: IPRATROPIUM/ALBUTEROL 0.5-3(2.5)MG/3ML NEB HHN SCH ×5 (02:10→16:41)
[2021-08-18] MEDS: ONDANSETRON INJ 8 MG in DEXTROSE 5% WATER 50 ML IV SCH ×4 (03:04→21:21)
[2021-08-18] MEDS: INSULIN LISPRO 100 UNITS/ML SUBCUT SCH ×3 (06:00→18:06)
[2021-08-18] MEDS: BLOOD SUGAR DIAGNOSTIC STRIP TEST SCH ×3 (06:14→18:06)
[2021-08-18 06:40] LABS: BASOPHILS % 0.8 % (0.0-2.0); EOSINOPHILS % 1.8 % (0.0-5.0); HEMATOCRIT. 26.6 % (42.0-52.0); HEMOGLOBIN. 8.8 g/dL (14.0-18.0); MEAN CORPUSCULAR HEMOGLOBIN 30.3 pg (28.0-32.0); MEAN CORPUSCULAR VOLUME 91.5 fL (80.0-94.0); MEAN PLATELET VOLUME 8.8 fl (7.4-10.4); MONOCYTES % 6.9 % (2.0-8.0); NEUTROPHILS % 80.5 % (40.0-76.0); PLATELET 294 x1000/uL (130-400); RED BLOOD CELL COUNT 2.91 mill/uL (4.7-6.1); RED CELL DISTRIBUTION WIDTH 14.9 % (11.6-14.6)
[2021-08-18] MEDS ORDERED: ALTEPLASE 2MG/VIAL ITC SCH (08:00)
[2021-08-18] MEDS: CALCIUM ACETATE 667MG CAPSULE PO SCH ×3 (08:52→17:53)
[2021-08-18] MEDS: FINASTERIDE 5MG TABLET PO SCH (08:52)
[2021-08-18] MEDS: PANTOPRAZOLE SODIUM 40 MG/VIAL IV SCH (08:52)
[2021-08-18] MEDS: SEVELAMER CARBONATE 800 MG TABLET PO SCH ×3 (08:52→17:53)
[2021-08-18] MEDS: FERROUS SULFATE 325MG TABLET PO SCH ×2 (08:52→17:53)
[2021-08-18] MEDS: MIDODRINE HCL 5MG TABLET PO SCH ×3 (08:52→17:00)
[2021-08-18] MEDS: THIAMINE HCL 100MG TABLET PO SCH (08:52)
[2021-08-18] MEDS ORDERED: FENTANYL CITRATE/PF 50MCG/ML 2ML VIAL ONE (09:24)
[2021-08-18] MEDS ORDERED: HEPARIN 1000 UNITS/ML 10ML ONE (09:25)
[2021-08-18] MEDS ORDERED: LIDOCAINE HCL 1% 20ML VIAL (Pyxis) INJ ONE (09:25)
[2021-08-18] MEDS ORDERED: SODIUM BICARBONATE 4% (2.4MEQ) 5ML VIAL IV ONE (09:25)
[2021-08-18] MEDS ORDERED: CEFAZOLIN 1000MG PREMIX 50 ML IV SCH (09:30)
[2021-08-18] MEDS ORDERED: CEFAZOLIN 1000MG PREMIX 50 ML IV ONE (09:40)
[2021-08-18] MEDS ORDERED: IOHEXOL-300 100 ML BOTTLE ONE (09:47)
[2021-08-18] MEDS ORDERED: FENTANYL CITRATE/PF 50MCG/ML 2ML VIAL IV ONE (11:30)
[2021-08-18] MEDS: SENNOSIDES/DOCUSATE SOD 8.6/50MG TABLET PO SCH (21:22)
[2021-08-18] MEDS: INSULIN GLARGINE UD 100 UNITS/ML SYR SUBCUT SCH (21:23)
[2021-08-19] VITALS (27 sets, daily range): BP systolic 94–141; BP diastolic 49–85
[2021-08-19] MEDS: IPRATROPIUM/ALBUTEROL 0.5-3(2.5)MG/3ML NEB HHN SCH ×4 (00:47→21:28)
[2021-08-19] MEDS: ONDANSETRON INJ 8 MG in DEXTROSE 5% WATER 50 ML IV SCH ×4 (03:02→21:13)
[2021-08-19] MEDS: BLOOD SUGAR DIAGNOSTIC STRIP TEST SCH ×4 (06:19→16:07)
[2021-08-19] MEDS: INSULIN LISPRO 100 UNITS/ML SUBCUT SCH ×4 (06:25→16:07)
[2021-08-19 07:24] LABS: BASOPHILS % 0.5 % (0.0-2.0); EOSINOPHILS % 1.9 % (0.0-5.0); HEMATOCRIT. 24.4 % (42.0-52.0); LYMPHOCYTES % 8.7 % (20.0-50.0); MEAN CORPUSCULAR HEMOGLOBIN 29.6 pg (28.0-32.0); MEAN CORPUSCULAR VOLUME 90.6 fL (80.0-94.0); MEAN PLATELET VOLUME 8.5 fl (7.4-10.4); MONOCYTES % 4.9 % (2.0-8.0); PLATELET 298 x1000/uL (130-400); RED BLOOD CELL COUNT 2.69 mill/uL (4.7-6.1); RED CELL DISTRIBUTION WIDTH 14.7 % (11.6-14.6)
[2021-08-19] MEDS: CALCIUM ACETATE 667MG CAPSULE PO SCH ×3 (08:32→16:15)
[2021-08-19] MEDS: SEVELAMER CARBONATE 800 MG TABLET PO SCH ×3 (08:32→16:15)
[2021-08-19] MEDS: FINASTERIDE 5MG TABLET PO SCH (08:33)
[2021-08-19] MEDS: FERROUS SULFATE 325MG TABLET PO SCH ×2 (08:33→16:15)
[2021-08-19] MEDS: THIAMINE HCL 100MG TABLET PO SCH (08:33)
[2021-08-19] MEDS: PANTOPRAZOLE SODIUM 40 MG/VIAL IV SCH (08:33)
[2021-08-19 08:45] LABS: PHOSPHORUS 3.9 mg/dL (2.5-4.9)
[2021-08-19] MEDS: MIDODRINE HCL 5MG TABLET PO SCH ×3 (09:00→16:07)
[2021-08-19] MEDS: ACETYLCYSTEINE 100MG/ML 10% VIAL 4ML INH SCH ×2 (09:15→14:56)
[2021-08-19] MEDS ORDERED: CEFAZOLIN 1000MG PREMIX 50 ML IV NR (10:00)
[2021-08-19] MEDS ORDERED: FENTANYL CITRATE/PF 50MCG/ML 2ML VIAL ONE (10:54)
[2021-08-19] MEDS ORDERED: CEFAZOLIN 1000MG PREMIX 50 ML IV ONE (10:54)
[2021-08-19] MEDS ORDERED: LIDOCAINE HCL 1% 20ML VIAL (Pyxis) INJ ONE (11:20)
[2021-08-19] MEDS ORDERED: IOHEXOL-300 50 ML BOTTLE IV ONE (11:39)
[2021-08-19] MEDS ORDERED: FENTANYL CITRATE/PF 50MCG/ML 2ML VIAL IV ONE (13:15)
[2021-08-19 14:26] LABS: INR 1.1; PARTIAL THROMBOPLASTIN TIME 24.1 sec (23.4-31.0); PROTHROMBIN TIME 11.4 sec (9.6-11.0)
[2021-08-19] MEDS: SENNOSIDES/DOCUSATE SOD 8.6/50MG TABLET PO SCH (21:13)
[2021-08-19] MEDS: INSULIN GLARGINE UD 100 UNITS/ML SYR SUBCUT SCH (21:14)
[2021-08-20] VITALS (11 sets, daily range): BP systolic 97–143; BP diastolic 31–88
[2021-08-20] MEDS: BLOOD SUGAR DIAGNOSTIC STRIP TEST SCH ×4 (00:24→17:43)
[2021-08-20] MEDS: IPRATROPIUM/ALBUTEROL 0.5-3(2.5)MG/3ML NEB HHN SCH ×4 (01:45→21:01)
[2021-08-20] MEDS: ONDANSETRON INJ 8 MG in DEXTROSE 5% WATER 50 ML IV SCH ×4 (02:35→20:09)
[2021-08-20] MEDS: INSULIN LISPRO 100 UNITS/ML SUBCUT SCH ×4 (06:00→17:44)
[2021-08-20 07:09] LABS: BASOPHILS % 0.6 % (0.0-2.0); EOSINOPHILS % 1.2 % (0.0-5.0); HEMATOCRIT. 25.3 % (42.0-52.0); HEMOGLOBIN. 8.1 g/dL (14.0-18.0); LYMPHOCYTES % 7.4 % (20.0-50.0); MEAN CORPUSCULAR HEMOGLOBIN 29.6 pg (28.0-32.0); MEAN CORPUSCULAR VOLUME 92.9 fL (80.0-94.0); MEAN PLATELET VOLUME 8.9 fl (7.4-10.4); MONOCYTES % 6.9 % (2.0-8.0); NEUTROPHILS % 83.9 % (40.0-76.0); PLATELET 281 x1000/uL (130-400); RED BLOOD CELL COUNT 2.72 mill/uL (4.7-6.1); RED CELL DISTRIBUTION WIDTH 15.3 % (11.6-14.6)
[2021-08-20] MEDS: SEVELAMER CARBONATE 800 MG TABLET PO SCH ×3 (07:20→17:20)
[2021-08-20] MEDS: CALCIUM ACETATE 667MG CAPSULE PO SCH ×3 (07:20→17:20)
[2021-08-20] MEDS: ACETYLCYSTEINE 100MG/ML 10% VIAL 4ML INH SCH ×2 (07:30→21:01)
[2021-08-20] MEDS: PANTOPRAZOLE SODIUM 40 MG/VIAL IV SCH (08:24)
[2021-08-20] MEDS: FINASTERIDE 5MG TABLET PO SCH (08:25)
[2021-08-20] MEDS: FERROUS SULFATE 325MG TABLET PO SCH ×2 (08:25→17:00)
[2021-08-20] MEDS: MIDODRINE HCL 5MG TABLET PO SCH ×3 (08:26→17:00)
[2021-08-20] MEDS: THIAMINE HCL 100MG TABLET PO SCH (08:35)
[2021-08-20] MEDS ORDERED: CEFAZOLIN 1000MG PREMIX 50 ML IV NR (09:00)
[2021-08-20] MEDS ORDERED: CEFAZOLIN SODIUM 1000MG/VIAL IV ONE (11:30)
[2021-08-20] MEDS ORDERED: MIDAZOLAM HCL 5 MG/5 ML VIAL IV PRN (15:52)
[2021-08-20] MEDS ORDERED: FENTANYL CITRATE/PF 50MCG/ML 2ML VIAL ONE (15:52)
[2021-08-20] MEDS ORDERED: MIDAZOLAM HCL 5 MG/5 ML VIAL ONE (15:52)
[2021-08-20] MEDS: SENNOSIDES/DOCUSATE SOD 8.6/50MG TABLET PO SCH (20:09)
[2021-08-20] MEDS: INSULIN GLARGINE UD 100 UNITS/ML SYR SUBCUT SCH (22:28)
[2021-08-21] VITALS (11 sets, daily range): BP systolic 91–121; BP diastolic 38–71
[2021-08-21] MEDS: BLOOD SUGAR DIAGNOSTIC STRIP TEST SCH ×5 (00:07→23:30)
[2021-08-21] MEDS: IPRATROPIUM/ALBUTEROL 0.5-3(2.5)MG/3ML NEB HHN SCH ×4 (01:11→20:05)
[2021-08-21] MEDS: ONDANSETRON INJ 8 MG in DEXTROSE 5% WATER 50 ML IV SCH ×4 (03:15→20:45)
[2021-08-21] MEDS: INSULIN LISPRO 100 UNITS/ML SUBCUT SCH ×5 (06:00→23:39)
[2021-08-21] MEDS: THIAMINE HCL 100MG TABLET PO SCH (08:28)
[2021-08-21] MEDS: MIDODRINE HCL 5MG TABLET PO SCH ×3 (08:28→16:39)
[2021-08-21] MEDS: FERROUS SULFATE 325MG TABLET PO SCH ×2 (08:28→16:37)
[2021-08-21] MEDS: CALCIUM ACETATE 667MG CAPSULE PO SCH ×3 (08:28→16:37)
[2021-08-21] MEDS: PANTOPRAZOLE SODIUM 40 MG/VIAL IV SCH (08:29)
[2021-08-21] MEDS: FINASTERIDE 5MG TABLET PO SCH (08:29)
[2021-08-21] MEDS: SEVELAMER CARBONATE 800 MG TABLET PO SCH ×3 (08:29→16:37)
[2021-08-21] MEDS: ACETYLCYSTEINE 100MG/ML 10% VIAL 4ML INH SCH ×2 (09:45→20:05)
[2021-08-21 10:32] LABS: BASOPHILS % 0.8 % (0.0-2.0); EOSINOPHILS % 1.2 % (0.0-5.0); HEMATOCRIT. 24.4 % (42.0-52.0); HEMOGLOBIN. 7.8 g/dL (14.0-18.0); LYMPHOCYTES % 7.7 % (20.0-50.0); MEAN CORPUSCULAR HEMOGLOBIN 29.1 pg (28.0-32.0); MEAN PLATELET VOLUME 8.5 fl (7.4-10.4); MONOCYTES % 9.7 % (2.0-8.0); NEUTROPHILS % 80.6 % (40.0-76.0); PLATELET 260 x1000/uL (130-400); RED BLOOD CELL COUNT 2.69 mill/uL (4.7-6.1); RED CELL DISTRIBUTION WIDTH 15.1 % (11.6-14.6)
[2021-08-21] MEDS: SENNOSIDES/DOCUSATE SOD 8.6/50MG TABLET PO SCH (20:45)
[2021-08-21] MEDS: INSULIN GLARGINE UD 100 UNITS/ML SYR SUBCUT SCH (23:29)
[2021-08-22] VITALS (10 sets, daily range): BP systolic 101–147; BP diastolic 45–97
[2021-08-22] MEDS: IPRATROPIUM/ALBUTEROL 0.5-3(2.5)MG/3ML NEB HHN SCH ×3 (02:13→12:36)
[2021-08-22] MEDS: ONDANSETRON INJ 8 MG in DEXTROSE 5% WATER 50 ML IV SCH ×3 (03:15→21:00)
[2021-08-22] MEDS: INSULIN LISPRO 100 UNITS/ML SUBCUT SCH ×3 (05:42→17:07)
[2021-08-22] MEDS: BLOOD SUGAR DIAGNOSTIC STRIP TEST SCH ×3 (05:42→17:07)
[2021-08-22] MEDS: ACETYLCYSTEINE 100MG/ML 10% VIAL 4ML INH SCH ×2 (07:32→12:37)
[2021-08-22] MEDS: THIAMINE HCL 100MG TABLET PO SCH (09:09)
[2021-08-22] MEDS: FERROUS SULFATE 325MG TABLET PO SCH ×2 (09:09→17:35)
[2021-08-22] MEDS: FINASTERIDE 5MG TABLET PO SCH (09:09)
[2021-08-22] MEDS: MIDODRINE HCL 5MG TABLET PO SCH ×3 (09:09→17:35)
[2021-08-22] MEDS: PANTOPRAZOLE SODIUM 40 MG/VIAL IV SCH (09:10)
[2021-08-22] MEDS: CALCIUM ACETATE 667MG CAPSULE PO SCH ×3 (09:10→17:35)
[2021-08-22] MEDS: SEVELAMER CARBONATE 800 MG TABLET PO SCH ×3 (09:10→17:34)
[2021-08-22] MEDS: SENNOSIDES/DOCUSATE SOD 8.6/50MG TABLET PO SCH (21:56)
[2021-08-22] MEDS: INSULIN GLARGINE UD 100 UNITS/ML SYR SUBCUT SCH (21:57)
[2021-08-23] VITALS: BP 113/56
[2021-08-23] MEDS: IPRATROPIUM/ALBUTEROL 0.5-3(2.5)MG/3ML NEB HHN SCH ×2 (00:31→08:41)
[2021-08-23] MEDS: ONDANSETRON INJ 8 MG in DEXTROSE 5% WATER 50 ML IV SCH ×2 (03:00→09:00)
[2021-08-23 04:00] VITALS: BP 111/47
[2021-08-23] MEDS: BLOOD SUGAR DIAGNOSTIC STRIP TEST SCH ×2 (05:16)
[2021-08-23] MEDS: INSULIN LISPRO 100 UNITS/ML SUBCUT SCH ×2 (06:00)
[2021-08-23 06:05] LABS: HEMATOCRIT. 24.9 % (42.0-52.0); HEMOGLOBIN. 8.1 g/dL (14.0-18.0); MEAN CORPUSCULAR HEMOGLOBIN 30.1 pg (28.0-32.0); MEAN CORPUSCULAR VOLUME 92.7 fL (80.0-94.0); MEAN PLATELET VOLUME 8.5 fl (7.4-10.4); PLATELET 328 x1000/uL (130-400); RED BLOOD CELL COUNT 2.68 mill/uL (4.7-6.1)
[2021-08-23 07:25] VITALS: BP 127/60
[2021-08-23] MEDS: CALCIUM ACETATE 667MG CAPSULE PO SCH (07:50)
[2021-08-23] MEDS: SEVELAMER CARBONATE 800 MG TABLET PO SCH (07:50)
[2021-08-23] MEDS: ACETYLCYSTEINE 100MG/ML 10% VIAL 4ML INH SCH (08:41)
[2021-08-23] MEDS: FINASTERIDE 5MG TABLET PO SCH (09:00)
[2021-08-23] MEDS: PANTOPRAZOLE SODIUM 40 MG/VIAL IV SCH (09:00)
[2021-08-23] MEDS: FERROUS SULFATE 325MG TABLET PO SCH (09:00)
[2021-08-23] MEDS: THIAMINE HCL 100MG TABLET PO SCH (09:00)
[2021-08-23] MEDS: MIDODRINE HCL 5MG TABLET PO SCH (09:00)
[2021-08-23] MEDS: ASPIRIN 81MG TABLET PO SCH (09:00)
[2021-08-23] MEDS ORDERED: ATROPINE SULFATE 1MG/10ML SYR ONE (09:24)
[2021-08-23] MEDS ORDERED: MAGNESIUM SULFATE 4G IN WATER 100ML PREMIX IV ONE (09:24)
[2021-08-23] MEDS ORDERED: EPINEPHRINE 0.1MG/ML (1:10,000) 10ML SYR ONE (09:24)
[2021-08-23] MEDS ORDERED: CALCIUM CHLORIDE 1GM/10ML SYR IV ONE (09:24)
[2021-08-23] MEDS ORDERED: SODIUM BICARBONATE 8.4% 1 MEQ/ML 50ML SYR IV ONE (09:24)
[2021-08-23] MEDS ORDERED: AMIODARONE HCL 50MG/ML 3ML VIAL IV ONE (09:24)
[2021-08-23] MEDS ORDERED: SODIUM POLYSTYRENE SULFONATE 15 G/60 ML BOT GT NR (09:30)
[2021-08-23 14:34] LABS: PLATELET ESTIMATE NORMAL
== END 2021-08-23 12:44 | DRG 710 ==
LOC: ER 11:02 → MICUSO 14:23 → 3WST 19:49 → CVICU 07-27 01:30 → 3WST 08-02 17:20 → MICUSO 08-08 22:56 → CVICU 08-09 06:24 → 3WST 08-17 02:19 → 6WST 08-22 15:48 → 5EST 08-23 11:59
PROVIDERS: ADMIT Internal Medicine; ATTEND Internal Medicine
PROC: 5A09357 Assistance with Respiratory Ventilation, Less than 24 Consecutive Hours, Continuous Positive Airway Pressure (ICD-10-PCS; 2021-07-26)
PROC: 5A1955Z Respiratory Ventilation, Greater than 96 Consecutive Hours (ICD-10-PCS; principal; 2021-07-27)
PROC: 5A1D70Z Performance of Urinary Filtration, Intermittent, Less than 6 Hours Per Day (ICD-10-PCS; 2021-07-27)
PROC: 0BH17EZ Insertion of Endotracheal Airway into Trachea, Via Natural or Artificial Opening (ICD-10-PCS; 2021-07-27)
PROC: 05HY33Z Insertion of Infusion Device into Upper Vein, Percutaneous Approach (ICD-10-PCS; 2021-07-27)
PROC: B54MZZA Ultrasonography of Right Upper Extremity Veins, Guidance (ICD-10-PCS; 2021-07-27)
PROC: 5A1D70Z Performance of Urinary Filtration, Intermittent, Less than 6 Hours Per Day (ICD-10-PCS; 2021-07-29)
PROC: 5A1D70Z Performance of Urinary Filtration, Intermittent, Less than 6 Hours Per Day (ICD-10-PCS; 2021-07-31)
PROC: 5A1D70Z Performance of Urinary Filtration, Intermittent, Less than 6 Hours Per Day (ICD-10-PCS; 2021-08-03)
PROC: 5A1D70Z Performance of Urinary Filtration, Intermittent, Less than 6 Hours Per Day (ICD-10-PCS; 2021-08-04)
PROC: 4A10X4Z Monitoring of Central Nervous Electrical Activity, External Approach (ICD-10-PCS; 2021-08-05)
PROC: 5A1D70Z Performance of Urinary Filtration, Intermittent, Less than 6 Hours Per Day (ICD-10-PCS; 2021-08-06)
PROC: 5A1D70Z Performance of Urinary Filtration, Intermittent, Less than 6 Hours Per Day (ICD-10-PCS; 2021-08-08)
PROC: 5A1D70Z Performance of Urinary Filtration, Intermittent, Less than 6 Hours Per Day (ICD-10-PCS; 2021-08-09)
PROC: 0BH17EZ Insertion of Endotracheal Airway into Trachea, Via Natural or Artificial Opening (ICD-10-PCS; 2021-08-09)
PROC: 5A1945Z Respiratory Ventilation, 24-96 Consecutive Hours (ICD-10-PCS; 2021-08-09)
PROC: 5A1D70Z Performance of Urinary Filtration, Intermittent, Less than 6 Hours Per Day (ICD-10-PCS; 2021-08-12)
PROC: 06HY33Z Insertion of Infusion Device into Lower Vein, Percutaneous Approach (ICD-10-PCS; 2021-08-12)
PROC: B54CZZA Ultrasonography of Left Lower Extremity Veins, Guidance (ICD-10-PCS; 2021-08-12)
PROC: 5A1D70Z Performance of Urinary Filtration, Intermittent, Less than 6 Hours Per Day (ICD-10-PCS; 2021-08-14)
PROC: 30233N1 Transfusion of Nonautologous Red Blood Cells into Peripheral Vein, Percutaneous Approach (ICD-10-PCS; 2021-08-14)
PROC: 5A1D70Z Performance of Urinary Filtration, Intermittent, Less than 6 Hours Per Day (ICD-10-PCS; 2021-08-16)
PROC: 03WY3JZ Revision of Synthetic Substitute in Upper Artery, Percutaneous Approach (ICD-10-PCS; 2021-08-18)
PROC: 05WY3JZ Revision of Synthetic Substitute in Upper Vein, Percutaneous Approach (ICD-10-PCS; 2021-08-18)
PROC: B51W1ZZ Fluoroscopy of Dialysis Shunt/Fistula using Low Osmolar Contrast (ICD-10-PCS; 2021-08-18)
PROC: B51N1ZA Fluoroscopy of Left Upper Extremity Veins using Low Osmolar Contrast, Guidance (ICD-10-PCS; 2021-08-18)
PROC: 3E03317 Introduction of Other Thrombolytic into Peripheral Vein, Percutaneous Approach (ICD-10-PCS; 2021-08-18)
PROC: 5A1D70Z Performance of Urinary Filtration, Intermittent, Less than 6 Hours Per Day (ICD-10-PCS; 2021-08-19)
PROC: 02HV33Z Insertion of Infusion Device into Superior Vena Cava, Percutaneous Approach (ICD-10-PCS; 2021-08-19)
PROC: B518ZZA Fluoroscopy of Superior Vena Cava, Guidance (ICD-10-PCS; 2021-08-19)
PROC: B548ZZA Ultrasonography of Superior Vena Cava, Guidance (ICD-10-PCS; 2021-08-19)
PROC: 0DH63UZ Insertion of Feeding Device into Stomach, Percutaneous Approach (ICD-10-PCS; 2021-08-20)
PROC: 5A1D70Z Performance of Urinary Filtration, Intermittent, Less than 6 Hours Per Day (ICD-10-PCS; 2021-08-21)
PROC: 5A12012 Performance of Cardiac Output, Single, Manual (ICD-10-PCS; 2021-08-23)
PROC: 5A2204Z Restoration of Cardiac Rhythm, Single (ICD-10-PCS; 2021-08-23)
PROC: 0BH17EZ Insertion of Endotracheal Airway into Trachea, Via Natural or Artificial Opening (ICD-10-PCS; 2021-08-23)
PROC: 5A1935Z Respiratory Ventilation, Less than 24 Consecutive Hours (ICD-10-PCS; 2021-08-23)
PROC: 05HY33Z Insertion of Infusion Device into Upper Vein, Percutaneous Approach (ICD-10-PCS; 2021-08-23)
PROC: B54MZZA Ultrasonography of Right Upper Extremity Veins, Guidance (ICD-10-PCS; 2021-08-23)
DX: B37.7 Candidal sepsis (principal); J96.01 Acute respiratory failure with hypoxia; N17.0 Acute kidney failure with tubular necrosis; R65.21 Severe sepsis with septic shock; G92 Toxic encephalopathy; J69.0 Pneumonitis due to inhalation of food and vomit; L89.313 Pressure ulcer of right buttock, stage 3; E46 Unspecified protein-calorie malnutrition; E87.2 Acidosis; K22.10 Ulcer of esophagus without bleeding; L89.323 Pressure ulcer of left buttock, stage 3; J16.8 Pneumonia due to other specified infectious organisms; I13.2 Hypertensive heart and chronic kidney disease with heart failure and with stage 5 chronic kidney disease, or end stage renal disease; I50.20 Unspecified systolic (congestive) heart failure; N18.6 End stage renal disease; E87.1 Hypo-osmolality and hyponatremia; E11.22 Type 2 diabetes mellitus with diabetic chronic kidney disease; F03.90 Unspecified dementia, unspecified severity, without behavioral disturbance, psychotic disturbance, mood disturbance, and anxiety; E78.5 Hyperlipidemia, unspecified; D64.9 Anemia, unspecified; E87.5 Hyperkalemia; J84.9 Interstitial pulmonary disease, unspecified; K29.70 Gastritis, unspecified, without bleeding; K44.9 Diaphragmatic hernia without obstruction or gangrene; I46.9 Cardiac arrest, cause unspecified; I49.01 Ventricular fibrillation; E87.6 Hypokalemia; R13.12 Dysphagia, oropharyngeal phase; F31.9 Bipolar disorder, unspecified; I25.10 Atherosclerotic heart disease of native coronary artery without angina pectoris; E11.51 Type 2 diabetes mellitus with diabetic peripheral angiopathy without gangrene; I87.8 Other specified disorders of veins; L84 Corns and callosities; Z20.822 Contact with and (suspected) exposure to COVID-19; T82.868A Thrombosis due to vascular prosthetic devices, implants and grafts, initial encounter; Y83.2 Surgical operation with anastomosis, bypass or graft as the cause of abnormal reaction of the patient, or of later complication, without mention of misadventure at the time of the procedure; Y92.238 Other place in hospital as the place of occurrence of the external cause; S90.424A Blister (nonthermal), right lesser toe(s), initial encounter; I63.81 Other cerebral infarction due to occlusion or stenosis of small artery; X58.XXXA Exposure to other specified factors, initial encounter; Y93.89 Activity, other specified; Y99.8 Other external cause status; Z86.16 Personal history of COVID-19; Z99.2 Dependence on renal dialysis; Z68.30 Body mass index [BMI] 30.0-30.9, adult; I69.30 Unspecified sequelae of cerebral infarction
CPT/HCPCS: 31500; 36415; 36558; 36600; 36905; 70551; 71045; 74176; 76937; 77001; 80048; 80053; 80061; 80202; 82040; 82270; 82375; 82550; 82607; 82728; 82746; 82805; 82962; 83036; 83540; 83550; 83605; 83615; 83735; 83880; 84100; 84134; 84145; 84478; 84484; 84520; 85014; 85018; 85025; 85027; 85044; 85049; 85379; 85384; 86140; 86705; 86709; 86803; 86850; 86900; 86920; 87070; 87340; 87426; 87804; 92610; 92950; 93005; 93306; 93970; 94002; 94003; 94640; 94660; 94667; 95816; 97162; 97164; 97530; 99152; 99153; 99291; C1725; C1750; C1752; C1766; C1769; C1887; C1893; C2630; C9113; J0282; J0330; J0461; J0610; J0690; J1450; J1642; J1644; J1650; J1815; J2250; J2370; J2405; J2543; J2704; J2765; J2997; J3010; J3370; J3475; J3490; J7040; J7042; J7050; J7060; J7608; P9016; Q0161; Q9967; U0003; U0005; A4315; G0500